=== PATIENT | female | born 1970 | race Caucasian/White ===

== ENCOUNTER → 2016-06-02 | Outpatient (CLI) | payer OTHER ==
--- NOTE | 2016-06-02 13:51 | MM ---
Reason for exam: clinical finding. Last mammogram was performed 8 months ago. Physical Findings: Nurse Summary: 2cm nodule in the left breast at 2 o'clock (nurse cosmo). MG 3D Diag Mammo W/Cad GREGORIO Bilateral CC and MLO view(s) were taken. Prior study comparison: October 03, 2015, bilateral MG screening mammo w CAD. April 05, 2010, bilateral diagnostic digital mammog. The breast tissue is extremely dense which could obscure a lesion on mammography. Finding: There are diffuse/scattered calcifications in both breasts without suspicious calcifications. There is a 2.9 x 1.8cm mass at site of clinical concern. These results were verbally communicated with the patient and result sheet given to the patient on 06/02/16. ASSESSMENT: Incomplete: need additional imaging evaluation, BI-RAD 0 RECOMMENDATION: Ultrasound of the left breast. (at palpable)
--- NOTE | 2016-06-02 13:52 | USB ---
Reason for exam: additional evaluation requested from abnormal screening. US Breast Limited LT Left breast ultrasound demonstrates numerous scattered cysts measuring 2.2cm at 1 o'clock, 1.3cm at 1 o'clock, 1.2cm at 2 o'clock, 1.7cm at 2 o'clock, 1.9cm at 3 o'clock and 2.4 x 1.4 x 2.0cm at BB at axilla. These results were verbally communicated with the patient and result sheet given to the patient on 06/02/16. ASSESSMENT: Benign, BI-RAD 2 RECOMMENDATION: Return to routine screening mammogram schedule for both breasts.
== END | disposition home or self-care (01) ==
LOC: RADMAMWWP 11:14
PROVIDERS: ATTEND Family Medicine
DX: N63 Unspecified lump in breast (principal)
CPT/HCPCS: 76642; G0204; G0279

== ENCOUNTER → 2017-08-14 | Outpatient (CLI) | payer OTHER ==
--- NOTE | 2017-08-14 12:46 | XR ---
EXAMINATION TYPE: XR chest 2V DATE OF EXAM: 08/14/2017 COMPARISON: NONE HISTORY: Cough. Posterior pain. TECHNIQUE: Frontal and lateral views of the chest are obtained. FINDINGS: There is no focal air space opacity, pleural effusion, or pneumothorax seen. The cardiac silhouette size is within normal limits. The osseous structures are intact. IMPRESSION: No acute cardiopulmonary process.
--- NOTE | 2017-08-14 12:48 | XR ---
EXAMINATION TYPE: XR thoracic spine complete DATE OF EXAM: 08/14/2017 CLINICAL HISTORY: Posterior back pain. TECHNIQUE: Frontal, lateral, and swimmer's view of thoracic spine are obtained. COMPARISON: None. FINDINGS: Thoracic spine show straightened alignment without evidence of acute fracture or dislocatio n. Vertebral body heights and disc space heights are preserved. Mild multilevel anterior spurring is seen. Visualized ribs and pedicles are unremarkable. IMPRESSION: Mild multilevel anterior spurring.
== END ==
LOC: RADXRMAIN 12:11
PROVIDERS: ATTEND Family Medicine
DX: M46.04 Spinal enthesopathy, thoracic region (principal)
CPT/HCPCS: 71046; 72072

== ENCOUNTER → 2017-09-25 | Outpatient (CLI) | payer OTHER ==
--- NOTE | 2017-09-28 10:22 | MM ---
Reason for exam: screening (asymptomatic). Last mammogram was performed 1 year and 4 months ago. Physical Findings: A clinical breast exam by your physician is recommended on an annual basis and results should be correlated with mammographic findings. MG Screening Mammo w CAD Bilateral CC and MLO view(s) were taken. Prior study comparison: June 02, 2016, bilateral MG 3d diag mammo w/cad GREGORIO. October 03, 2015, bilateral MG screening mammo w CAD. The breast tissue is extremely dense which could obscure a lesion on mammography. There are benign appearing round, oval, circumscribed, multiple bilateral masses waxing and waning over priors most characteristic of cysts. Benign appearing diffuse bilateral calcifications. No suspicious abnormality. ASSESSMENT: Benign, BI-RAD 2 RECOMMENDATION: Routine screening mammogram of both breasts in 1 year.
== END ==
LOC: RADMAMWWP 08:51
PROVIDERS: ATTEND Family Medicine
DX: Z12.31 Encounter for screening mammogram for malignant neoplasm of breast (principal)
CPT/HCPCS: 77067

== ENCOUNTER → 2018-12-13 | Outpatient (CLI) | payer OTHER ==
--- NOTE | 2018-12-14 11:18 | MM ---
Reason for exam: screening (asymptomatic). Last mammogram was performed 1 year and 3 months ago. Physical Findings: A clinical breast exam by your physician is recommended on an annual basis and results should be correlated with mammographic findings. MG 3D Screening Mammo W/Cad Bilateral CC and MLO view(s) were taken. Prior study comparison: September 25, 2017, bilateral MG screening mammo w CAD. June 02, 2016, bilateral MG 3d diag mammo w/cad GREGORIO. The breast tissue is extremely dense which could obscure a lesion on mammography. Finding: There are multiple round, diffuse/scattered calcifications in both breasts. There is a chronic nodularity bilaterally. Increase in size since September 25, 2017 and June 02, 2016. ASSESSMENT: Incomplete: need additional imaging evaluation, BI-RAD 0 RECOMMENDATION: Ultrasound of both breasts. [facility] will attempt to contact patient to return for ultrasound.
== END | disposition home or self-care (01) ==
LOC: RADMAMWWP 14:06
PROVIDERS: ATTEND Family Medicine
DX: Z12.31 Encounter for screening mammogram for malignant neoplasm of breast (principal)
CPT/HCPCS: 77063; 77067

== ENCOUNTER → 2018-12-17 | Outpatient (CLI) | payer OTHER ==
--- NOTE | 2018-12-17 10:52 | USB ---
Reason for exam: additional evaluation requested from abnormal screening. Physical Findings: Nurse did not find any significant physical abnormalities on exam. US Breast Workup GREGORIO Right complete breast ultrasound includes all four quadrants, the retroareolar region and axilla. Finding demonstrates a 4.9 x 2.6 x 3.8cm cystic lesion at 12 o'clock BB, a 1.0 x 0.6 x 0.9cm oval, mixed lesion at 7 o'clock BB, debris filled, short term follow up recommended, a 4.8 x 1.9 x 3.8cm cystic cluster at 8 o'clock and a 3.5 x 1.3 x 2.9cm cystic cluster at 9 o'clock. Left complete breast ultrasound includes all four quadrants, the retroareolar region and axilla. Finding demonstrates a 5.1 x 2.2 x 5.4cm cystic cluster at 12 o'clock BB, a 6.2 x 1.7 x 5.1cm cystic cluster at 2 o'clock and a 1.3 x 1.1 x 3.7cm cystic cluster at 10 o'clock BB. Innumerable cystic areas bilaterally. These results were verbally communicated with the patient and result sheet given to the patient on 12/17/18. ASSESSMENT: Probably benign, BI-RAD 3 RECOMMENDATION: Ultrasound of the right breast in 6 months.
== END | disposition home or self-care (01) ==
LOC: RADUSWWP 09:11
PROVIDERS: ATTEND Family Medicine
DX: R92.8 Other abnormal and inconclusive findings on diagnostic imaging of breast (principal)

== ENCOUNTER → 2019-07-15 | Outpatient (CLI) | payer BC ==
--- NOTE | 2019-07-15 11:09 | USB ---
Reason for exam: additional evaluation requested from prior study. Physical Findings: Nurse Summary: multiple bilatral cystic lumps (nurse mj). US Breast Limited RT Technologist: Asya Christianson Right limited breast ultrasound including focal area of concern, retroareolar and axilla demonstrates a 1.6 x 1.6 x 1.6cm cystic cluster at 9 o'clock, duct ectasia at the posterior nipple and a 1.1 x 0.8 x 5.3cm oval, cystic lesion with debris at 7 o'clock prior 1.0 x 0.6 x 0.9cm on 12/17/18. These results were verbally communicated with the patient and result sheet given to the patient on 07/15/19. ASSESSMENT: Probably benign, BI-RAD 3 RECOMMENDATION: Follow-up diagnostic mammogram of both breasts in 6 months. Ultrasound of the right breast in 6 months. (7 o'clock)
== END | disposition home or self-care (01) ==
LOC: RADUSWWP 09:43
PROVIDERS: ATTEND Family Medicine
DX: R92.8 Other abnormal and inconclusive findings on diagnostic imaging of breast (principal)

== ENCOUNTER → 2020-01-13 | Outpatient (CLI) | payer BC ==
--- NOTE | 2020-01-16 08:37 | MM ---
Reason for exam: additional evaluation requested from prior study. Last mammogram was performed 1 year and 1 month ago. History: Family history of breast cancer in maternal aunt at age 71 and breast cancer in maternal cousin. Benign cyst aspiration of the left breast, 2014. Physical Findings: Nurse Summary: 2cm nodule in the right breast at 9 o'clock, 3cm nodule in the right breast at 12 o'clock, 2cm nodule in the left breast at 11 o'clock, 3cm nodule in the left breast at 1 o'clock and a 2cm nodule in the left breast at 3 o'clock (nurse mj). MG 3D Diag Mammo W/Cad GREGORIO Bilateral CC, MLO, and XCCL view(s) were taken. Prior study comparison: December 13, 2018, bilateral MG 3d screening mammo w/cad. September 25, 2017, bilateral MG screening mammo w CAD. Finding: There are typically benign fine, diffuse/scattered calcifications in both breasts. Large dense oval and round densities at BB. These results were verbally communicated with the patient and result sheet given to the patient on 01/13/20. ASSESSMENT: Incomplete: need additional imaging evaluation, BI-RAD 0 RECOMMENDATION: Ultrasound of both breasts.
--- NOTE | 2020-01-16 08:39 | USB ---
Reason for exam: additional evaluation requested from abnormal screening. History: Family history of breast cancer in maternal aunt at age 71 and breast cancer in maternal cousin. Benign cyst aspiration of the left breast, 2014. US Breast Limited BILAT Right limited breast ultrasound including focal area of concern, retroareolar and axilla demonstrates a 4.4 x 1.1 x 4.0cm cystic lesion at 10 o'clock BB and a 5 x 3.6 x 4.9cm cystic lesion at 12 o'clock BB. Left limited breast ultrasound including focal area of concern, retroareolar and axilla demonstrates a 5.2 x 1.3 x 5.8cm cystic lesion at 10-12 o'clock BB and a 3.2 x 1.6 x 2.8cm cystic lesion at 1 o'clock BB. These results were verbally communicated with the patient and result sheet given to the patient on 01/13/20. ASSESSMENT: Benign, BI-RAD 2 RECOMMENDATION: Routine screening mammogram of both breasts in 1 year. Manage patient on a clinical basis.
== END | disposition home or self-care (01) ==
LOC: RADMAMWWP 13:52
PROVIDERS: ATTEND Family Medicine
DX: R92.8 Other abnormal and inconclusive findings on diagnostic imaging of breast (principal)
CPT/HCPCS: 77062; 77066

== ENCOUNTER 2020-07-11 09:07 | Day surgery (SDC) | payer BC ==
[2020-07-06 15:30] VITALS: BMI 29.0
--- NOTE | 2020-07-11 07:14 | P.GSHP ---
History of Present Illness H&P Date: 07/11/20 CHIEF COMPLAINT: Colon screen HISTORY OF PRESENT ILLNESS: The patient is a 50-year-old female who presents for colon screen. Lower endoscopy was offered for further evaluation and management. PAST MEDICAL HISTORY: Please see list. PAST SURGICAL HISTORY: Please see list. MEDICATIONS: Please see list. ALLERGIES: Please see list. SOCIAL HISTORY: No illicit drug use FAMILY HISTORY: No reports of Crohn disease or ulcerative colitis. REVIEW OF ORGAN SYSTEMS: CONSTITUTIONAL: No reports of fevers or chills. PHYSICAL EXAM: VITAL SIGNS: Stable GENERAL: Well-developed pleasant in no acute distress. HEENT: No scleral icterus. Extraocular movements grossly intact. Moist buccal mucosa. NECK: Supple without lymphadenopathy. CHEST: Unlabored respirations. Equal bilateral excursions. CARDIOVASCULAR: Regular rate and rhythm. Distal 2+ pulses. ABDOMEN: Soft, nontender, nondistended. MUSCULOSKELETAL: No clubbing, cyanosis, or edema. ASSESSMENT: 1. Colon screen. PLAN: 1. Recommend proceeding with a lower endoscopy Past Medical History Past Medical History: Thyroid Disorder Additional Past Medical History / Comment(s): HX POTS SYNDROME, HYPOTHYROID, PT HAD BOIL OR CYST ON HER BACK DRAINED BY DR SANTANA ON 07/04/20-PT STATES IT IS HEALING-NO DRAINAGE. History of Any Multi-Drug Resistant Organisms: None Reported Past Surgical History: Section Past Anesthesia/Blood Transfusion Reactions: No Reported Reaction, Motion Sickness Past Psychological History: Anxiety, Depression Additional Psychological History / Comment(s): YEARS AGO Smoking Status: Former smoker Past Alcohol Use History: Occasional Additional Past Alcohol Use History / Comment(s): SMOKED 3-4 YEARS IN COLLEGE. Past Drug Use History: None Reported - Past Family History Mother Family Medical History: No Reported History Medications and Allergies Home Medications Medication Instructions Recorded Confirmed Type Ascorbic Acid [Vitamin C] 250 mg PO DAILY 07/06/20 07/06/20 History Cholecalciferol [Vitamin D3 (25 25 mcg PO DAILY 07/06/20 07/06/20 History Mcg = 1000 Iu)] Elderberry 1 tab PO DAILY 07/06/20 History Krill/[place]-3/Dha/Epa/Lipids 1 each PO DAILY 07/06/20 07/06/20 History [Krill Oil 350 mg Softgel] L.acidoph,Paracasei, B.lactis 1 each PO DAILY 07/06/20 07/06/20 History [Probiotic] Levothyroxine Sodium [Synthroid] 175 mcg PO DAILY 07/06/20 07/06/20 History Multivit with Calcium,Iron,Min 1 each PO DAILY 07/06/20 07/06/20 History [Women's Multivitamin] Zinc With Quercetin 1 tab PO DAILY 07/06/20 History Allergies Allergy/AdvReac Type Severity Reaction Status Date / Time No Known Allergies Allergy Verified 07/06/20 14:56
[~2020-07-11 09:07] MED LIST: LACTATED RINGERS 1,000 ML IV SCH; LIDOCAINE 1% (10MG/ML) FOR IV START INTRADERMA PRN
[2020-07-11 09:37] VITALS: TEMP 98.6
[2020-07-11] MEDS ORDERED: LACTATED RINGERS 1,000 ML IV ONE ×2 (10:15)
[2020-07-11] MEDS ORDERED: PROPOFOL 10 MG/ML 20 ML VIAL IV ONE (10:17)
[2020-07-11 10:52] VITALS: RESP 16
--- NOTE | 2020-07-11 10:52 | P.PCN ---
Date of Procedure: 07/11/20 Description of Procedure: PREOPERATIVE DIAGNOSIS: Colonoscopy screening, first POSTOPERATIVE DIAGNOSIS: Colonoscopy screening, first OPERATION: Colonoscopy to the ascending colon SURGEON: Arianne Farley MD. ANESTHESIA: MAC. INDICATIONS: The patient is a 50-year-old female who presents for her first colonoscopy screening. Benefits and risks were described and informed consent was obtained. DESCRIPTION OF PROCEDURE: The patient had undergone Sutab prep. The patient had been brought into the o perating room and laid in the left lateral decubitus position. After adequate intravenous sedation, the rectum was examined with 2% lidocaine jelly. No external hemorrhoids were encountered. The rectal tone was within normal limits. No lesions were palpated in the rectal vault. An Olympus colonoscope was advanced requiring abdominal wall pressure. The scope was advanced to the ascending colon limited by her highly redundant hepatic flexure and sigmoid colon. The prep was excellent. No scattered diverticulosis was encountered. No colonic polyps were found. No evidence of focal colitis was found. Retroflexion of the scope demonstrated grade 1 internal hemorrhoids without active bleeding or inflammation. The colon was desufflated. The patient had tolerated the procedure well. Withdrawal time was over 6 minutes. FINDINGS: Aronchick preparation quality scale 1 (1-5) Internal hemorrhoids, grade 1 No external prolapsed hemorrhoids. No arteriovenous malformations. No adenomatous polyps. No focal colitis. RECOMMENDATIONS: Lower endoscopy in 5 years, 2025. Recommend completion barium enema. Plan - Discharge Summary New Discharge Prescriptions: Continue Levothyroxine Sodium [Synthroid] 175 mcg PO DAILY Cholecalciferol [Vitamin D3 (25 Mcg = 1000 Iu)] 25 mcg PO DAILY Zinc With Quercetin 1 tab PO DAILY Multivit with Calcium,Iron,Min [Women's Multivitamin] 1 each PO DAILY L.acidoph,Paracasei, B.lactis [Probiotic] 1 each PO DAILY Krill/[place]-3/Dha/Epa/Lipids [Krill Oil 350 mg Softgel] 1 each PO DAILY Elderberry 1 tab PO DAILY Ascorbic Acid [Vitamin C] 250 mg PO DAILY Discharge Medication List Ascorbic Acid [Vitamin C] 250 mg PO DAILY 07/06/20 [History] Cholecalciferol [Vitamin D3 (25 Mcg = 1000 Iu)] 25 mcg PO DAILY 07/06/20 [History] Elderberry 1 tab PO DAILY 07/06/20 [History] Krill/[place]-3/Dha/Epa/Lipids [Krill Oil 350 mg Softgel] 1 each PO DAILY 07/06/20 [History] L.acidoph,Paracasei, B.lactis [Probiotic] 1 each PO DAILY 07/06/20 [History] Levothyroxine Sodium [Synthroid] 175 mcg PO DAILY 07/06/20 [History] Multivit with Calcium,Iron,Min [Women's Multivitamin] 1 each PO DAILY 07/06/20 [History] Zinc With Quercetin 1 tab PO DAILY 07/06/20 [History] Follow up Appointment(s)/Referral(s): Arianne Farley MD [STAFF PHYSICIAN] - As Needed Patient Instructions/Handouts: *Surgery [facility] - (Anesthesia) Endoscopy Discharge Instructions, Colonoscopy (DC) Activity/Diet/Wound Care/Special Instructions: Repeat colonoscopy in 5 years, 2025 Discharge Disposition: HOME SELF-CARE
[2020-07-11 10:59] VITALS: BP 125/85; PULSE 87
== END 2020-07-11 11:40 | disposition home or self-care (01) ==
LOC: ORWHC2ENDO 09:07
PROVIDERS: ATTEND Surgery Plastic and Reconstructive Surgery
DX: Z12.11 Encounter for screening for malignant neoplasm of colon (principal); K64.0 First degree hemorrhoids; E03.9 Hypothyroidism, unspecified; I49.8 Other specified cardiac arrhythmias; F41.9 Anxiety disorder, unspecified; F32.9 Major depressive disorder, single episode, unspecified; Z87.891 Personal history of nicotine dependence; Z79.890 Hormone replacement therapy; Z98.890 Other specified postprocedural states; Z98.891 History of uterine scar from previous surgery
CPT/HCPCS: 81025; J2704; G0121

== ENCOUNTER → 2020-09-12 | Outpatient (CLI) | payer BC ==
--- NOTE | 2020-09-12 17:32 | FL ---
EXAMINATION TYPE: FL barium enema w air contrast DATE OF EXAM: 09/12/2020 COMPARISON: NONE HISTORY: 50-year-old female R6 8.89, abdominal physical exam. Incomplete colonoscopy 2 months ago due to redundancy. TECHNIQUE: A double contrast barium enema study is performed. Total fluoroscopy time: 4 minutes 31 seconds. Total images: 62. FINDINGS: Harness Inspector view of the abdomen shows overall non-obstructive bowel gas pattern. There is prominent redundancy of the descending colon with an extra U shaped loop that occurs just af ter the splenic flexure of the colon. There is overlap causes some examination dictation. Allowing for this limitation, no evidence of any mass or polyp, obstructing or constricting lesion th roughout the colon. No significant diverticular disease is noted. Appendix was filled and appeared normal. No reflux into the terminal ileum. IMPRESSION: Marked redundancy of the descending colon with an extra U-shaped loop that occurs just after the sple nanci flexure of the colon. Allowing for limitations from prominent bowel overlap here, no discrete abn ormality is seen.
== END | disposition home or self-care (01) ==
LOC: RADFLMAIN 09:17
PROVIDERS: ATTEND Surgery Plastic and Reconstructive Surgery
DX: Q43.8 Other specified congenital malformations of intestine (principal)
CPT/HCPCS: 74280

== ENCOUNTER → 2021-03-05 | Outpatient (CLI) | payer BC ==
--- NOTE | 2021-03-06 12:45 | MM ---
Reason for exam: screening (asymptomatic). Last mammogram was performed 1 year and 2 months ago. History: Family history of breast cancer in maternal aunt at age 71 and breast cancer in maternal cousin at age 40. Benign cyst aspiration of the left breast, 2015. Physical Findings: A clinical breast exam by your physician is recommended on an annual basis and results should be correlated with mammographic findings. MG 3D Screening Mammo W/Cad Bilateral CC and MLO view(s) were taken. Prior study comparison: January 13, 2020, bilateral MG 3d diag mammo w/cad GREGORIO. December 13, 2018, bilateral MG 3d screening mammo w/cad. September 25, 2017, bilateral MG screening mammo w CAD. The breast tissue is heterogeneously dense. This may lower the sensitivity of mammography. Finding: Architectural distortion located 4 cm from the nipple in the right breast, medial on CC zone A/B. New finding since January 13, 2020, December 13, 2018, and September 25, 2017. ASSESSMENT: Incomplete: need additional imaging evaluation, BI-RAD 0 RECOMMENDATION: Ultrasound of the right breast. [facility] will attempt to contact patient to return for ultrasound.
== END | disposition home or self-care (01) ==
LOC: RADMAMWWP 12:02
PROVIDERS: ATTEND Family Medicine
DX: Z12.31 Encounter for screening mammogram for malignant neoplasm of breast (principal); Z80.3 Family history of malignant neoplasm of breast
CPT/HCPCS: 77063; 77067

== ENCOUNTER → 2021-03-18 | Outpatient (CLI) | payer BC ==
--- NOTE | 2021-03-19 12:11 | USB ---
Reason for exam: additional evaluation requested from abnormal screening. History: Family history of breast cancer in maternal aunt at age 71 and breast cancer in maternal cousin at age 40. Benign cyst aspiration of the left breast, 2014. Physical Findings: Nurse Summary: right breast 12 o'clock, mobile 1cm round (nurse steven). US Breast Workup Limited RT Right limited breast ultrasound including focal area of concern, retroareolar and axilla demonstrates a 2.1 x 2.3 x 1.2cm oval, cystic lesion at 12 o'clock, a 1.2 x 1.4 x 1.0cm oval, cystic lesion at 2 o'clock, a 0.5 x 0.6 x 0.5cm cystic, calcification at 6 o'clock no solid mass is identified and a 2.3 x 1.2 x 1.5cm oval, cystic lesion at the posterior nipple. These results were verbally communicated with the patient and result sheet given to the patient on 03/18/21. ASSESSMENT: Incomplete: need additional imaging evaluation, BI-RAD 0 RECOMMENDATION: Special view mammogram of the right breast. (spot 3D CC)
--- NOTE | 2021-03-19 12:12 | MM ---
Reason for exam: additional evaluation requested from abnormal screening. Last mammogram was performed less than 1 month ago. History: Family history of breast cancer in maternal aunt at age 71 and breast cancer in maternal cousin at age 40. Benign cyst aspiration of the left breast, 2015. MG 3D Work Up W/Cad RT Spot compression CC view(s) were taken of the right breast. Prior study comparison: January 13, 2020, bilateral MG 3d diag mammo w/cad GREGORIO. December 13, 2018, bilateral MG 3d screening mammo w/cad. The breast tissue is extremely dense which could obscure a lesion on mammography. Spot 3D shows no persisting architectural distortion. Diagnostic follow up recommended. These results were verbally communicated with the patient and result sheet given to the patient on 03/18/21. ASSESSMENT: Probably benign, BI-RAD 3 RECOMMENDATION: Follow-up diagnostic mammogram of both breasts in 1 year.
== END | disposition home or self-care (01) ==
LOC: RADUSWWP 10:32
PROVIDERS: ATTEND Family Medicine
DX: N60.01 Solitary cyst of right breast (principal); R92.1 Mammographic calcification found on diagnostic imaging of breast; Z80.3 Family history of malignant neoplasm of breast
CPT/HCPCS: 77061; 77065

== ENCOUNTER → 2021-06-19 | Outpatient (CLI) | payer BC ==
--- NOTE | 2021-06-19 12:11 | US ---
EXAMINATION TYPE: US venous doppler duplex LE DATE OF EXAM: 06/19/2021 12:05 PM COMPARISON: NONE CLINICAL HISTORY: R60.0 Edema. Edema. Pt had laser ablation procedure on right leg April 13. No hx of DVT. Not taking thinners. SIDE PERFORMED: Right TECHNIQUE: The lower extremity deep venous system is examined utilizing real time linear array sonog romero with graded compression, doppler sonography and color-flow sonography. VESSELS IMAGED: Common Femoral Vein Deep Femoral Vein Greater Saphenous Vein * Femoral Vein Popliteal Vein Small Saphenous Vein * Proximal Calf Veins (* superficial vessels) Right Leg: Internal echoes seen within GSV at the area of patient's concern . No color flow seen wit hin superficial vein at right medial upper thigh. Pt had laser ablation 04/13/2022. Left Leg: No evidence of DVT in veins imaged at this time. Office notified of the findings at the time of imaging. IMPRESSION: 1. No deep venous thrombosis bilateral lower extremities. 2. Appears to be thrombosis through the greater saphenous vein corresponding to the patient's area of concern.
--- NOTE | 2021-06-19 16:25 | XR ---
EXAMINATION TYPE: XR chest 2V DATE OF EXAM: 06/19/2021 COMPARISON: 08/14/2017 INDICATION: Dorsalgia TECHNIQUE: Frontal and lateral views of the chest are obtained. FINDINGS: The heart size is normal. The pulmonary vasculature is normal. The lungs are clear. Osseous structures appear normal. Thoracic spine appears unremarkable. Vertebra l body heights and disc heights as visualized appear normal. IMPRESSION: 1. No acute pulmonary process.
== END | disposition home or self-care (01) ==
LOC: RADUSWWP 11:21
PROVIDERS: ATTEND Family Medicine
DX: R60.0 Localized edema (principal); M54.9 Dorsalgia, unspecified
CPT/HCPCS: 71046; 93970

== ENCOUNTER → 2022-05-12 | Outpatient (CLI) | payer BC | END | disposition home or self-care (01) | LOC: RADMAMWWP 08:44 | PROVIDERS: ATTEND Obstetrics & Gynecology | DX: Z53.9 Procedure and treatment not carried out, unspecified reason (principal) ==

== ENCOUNTER → 2022-05-29 | Outpatient (CLI) | payer BC ==
--- NOTE | 2022-05-29 13:29 | MM ---
Reason for Exam: Follow-up at short interval from prior study. Last mammogram was performed 1 year(s) and 3 month(s) ago. Patient History: Menarche at age 14. First Full-Term at age 27. Perimenopausal. 2014, Benign Cyst Aspiration on the left side. Maternal cousin had breast cancer, age 40. Maternal aunt had breast cancer, age 71. Risk Values: Genesis 5 year model risk: 1.1%. NCI Lifetime model risk: 8.8%. Prior Study Comparison: 09/25/2017 Bilateral Screening Mammogram, [facility]. 12/13/2018 Bilateral Screening Mammogram, [facility]. 12/17/2018 Bilateral Diagnostic Ultrasound, [facility]. 07/15/2019 Right Diagnostic Ultrasound, [facility]. 01/13/2020 Bilateral Diagnostic Mammogram, [facility]. 01/13/2020 Bilateral Diagnostic Ultrasound, [facility]. 03/05/2021 Bilateral Screening Mammogram, [facility]. 03/18/2021 Right Diagnostic Ultrasound, [facility]. 03/18/2021 Right Diagnostic Mammogram, [facility]. Tissue Density: The breast tissue is extremely dense which could obscure a lesion on mammography. Findings: Analyzed By CAD. The breasts are extremely dense and there are innumerable (greater than 200) calcifications in both breasts which a majority are punctate. Direct comparison with priors given differences in technique is difficult. Overall Assessment: Benign, BI-RAD 2 Management: Diagnostic Breast MRI of both breasts. Given patient's extremely dense breast and greater than 200 calcifications in the bilateral breast, this patient should consider screening and workup with MRI in the future. A clinical breast exam by your physician is recommended on an annual basis and results should be correlated with mammographic findings. This exam should not preclude additional follow-up of suspicious palpable abnormalities. Results were given to the patient verbally at the time of exam. Electronically signed and approved by: Good Cohen DO
== END | disposition home or self-care (01) ==
LOC: RADMAMWWP 12:54
PROVIDERS: ATTEND Obstetrics & Gynecology
DX: R92.8 Other abnormal and inconclusive findings on diagnostic imaging of breast (principal); Z80.3 Family history of malignant neoplasm of breast
CPT/HCPCS: 77062; 77066

== ENCOUNTER → 2022-07-31 | Outpatient (CLI) | payer BC ==
[2022-07-31 13:32] VITALS: BP 133/85; PULSE 85; RESP 18; TEMP 98.2
--- NOTE | 2022-07-31 13:45 | P.GSHP ---
History of Present Illness H&P Date: 07/31/22 Oliva is a 52 year old white female seen in consultation for Dr. Romario Galvez regarding an abnormal mammogram. She underwent a bilateral mammogram on . This revealed dense breast tissue with innumerable calcifications in both breasts. The patient does not feel any new discrete lumps masses or nodules of concern in either breast. She is not complaining of any nipple discharge or skin changes. She has not had any recent trauma or infection in the breast. She's never had any breast surgery. She has had cyst aspirated in the past. She still has regular menstrual periods. Her breast become more full and tender prior to her menstrual periods. Caffiene: 2 cups coffee/day nicotine: stopped at 25 used to smoke 1 pk every 2 days chocolate: daily BCP: 6 years stopped at 27 Family History; mother: non-hodgkins lymphoma 2020 maternal aunt: breast cancer at 65 cousin maternal: breast cancer at 40 Hormonal History: menarche: 15 breat fed: yes, age at first : 27 periods still regular Surgical History: 1 right varicose vein stripping Medical History: hypothyroid low back pain; L5S1 herniated disc anxiety/depression in the past not now Social History: nicotine: as above alcohol: weekly drugs: none - Constitutional Constitutional: Denies chills, Denies fever - EENT Eyes: denies blurred vision, denies pain Ears: deny: decreased hearing, tinnitus Ears, nose, mouth and throat: Reports headache, Denies sore throat - Breasts Breasts: bilateral: as per HPI - Cardiovascular Cardiovascular: Denies chest pain, Denies shortness of breath - Respiratory Respiratory: Denies cough, Denies 7 - Gastrointestinal Gastrointestinal: Reports constipation, Denies abdominal pain, Denies diarrhea, Denies nausea, Denies vomiting - Genitourinary (Female) Genitourinary: Denies dysuria, Denies hematuria - Menstruation Menstruation: Reports period normal - Musculoskeletal Musculoskeletal: Reports as per HPI - Integumentary Integumentary: Denies pruritus, Denies rash - Neurological Neurological: Denies numbness, Denies weakness - Psychiatric Psychiatric: Denies anxiety, Denies depression - Endocrine Endocrine: Denies fatigue, Denies weight change - Hematologic/Lymphatic Comment: none - Allergic/Immunologic Allergic/Immunologic: Reports as per HPI Past Medical History Past Medical History: Thyroid Disorder Additional Past Medical History / Comment(s): HX POTS SYNDROME, HYPOTHYROID, PT HAD BOIL OR CYST ON HER BACK DRAINED BY DR GALVEZ ON 07/04/20-PT STATES IT IS HEALING-NO DRAINAGE. History of Any Multi-Drug Resistant Organisms: None Reported Past Surgical History: Section Past Anesthesia/Blood Transfusion Reactions: No Reported Reaction, Motion Sickness Past Psychological History: Anxiety, Depression Smoking Status: Former smoker Past Alcohol Use History: Occasional Past Drug Use History: None Reported - Past Family History Mother Family Medical History: No Reported History Medications and Allergies Home Medications Medication Instructions Recorded Confirmed Type Ascorbic Acid [Vitamin C] 250 mg PO DAILY 07/06/20 07/31/22 History Cholecalciferol [Vitamin D3 (25 25 mcg PO DAILY 07/06/20 07/31/22 History Mcg = 1000 Iu)] Krill/[place]-3/Dha/Epa/Lipids 1 each PO DAILY 07/06/20 07/31/22 History [Krill Oil 350 mg Softgel] L.acidoph,Paracasei, B.lactis 1 each PO DAILY 07/06/20 07/31/22 History [Probiotic] Levothyroxine Sodium [Synthroid] 175 mcg PO DAILY 07/06/20 07/31/22 History Multivit with Calcium,Iron,Min 1 each PO DAILY 07/06/20 07/31/22 History [Women's Multivitamin] Zinc With Quercetin 1 tab PO DAILY 07/06/20 07/31/22 History Allergies Allergy/AdvReac Type Severity Reaction Status Date / Time No Known Allergies Allergy Verified 07/31/22 13:27 Surgical - Exam - General no distress - Eyes normal ocular movement - Neck trachea midline - Respiratory normal respiratory effort, clear to auscultation - Cardiovascular Rhythm: regular Heart Sounds: normal: S1, S2 - Abdomen Abdomen: soft, non tender, no guarding, no rigid, no rebound - Integumentary normal turgor - Neurologic no disoriented, no combative - Musculoskeletal normal gait - Psychiatric oriented to time, oriented to person, oriented to place, speech is normal, memory intact Breast Exam: BRA: 38C inspection: Bilateral grade 2/3 ptosis Palpation: Right breast: Multiple positional exam dense breast, fibrocystic changes, no discrete dominant masses or nodules of concern Right axilla: No adenopathy of concern Left breast: Multiple positional exam dense breasts, fibrocystic changes, no discrete dominant masses or nodules of concern Left axilla: No adenopathy of concern Results Mammogram personally reviewed Assessment and Plan Assessment: Impression: Bilateral dense breast with bilateral radiographic multiple microcalcifications Plan: Bilateral breast MRI recommended, if we are unable to do the breast MRI would recommend bilateral breast ultrasound Follow up after breast MRI Cc: Dr. Romario Galvez, Dr. Garcia
== END ==
LOC: WWCWWP 13:00
PROVIDERS: ATTEND Surgery
DX: R92.8 Other abnormal and inconclusive findings on diagnostic imaging of breast (principal); E03.9 Hypothyroidism, unspecified; Z80.3 Family history of malignant neoplasm of breast; Z87.891 Personal history of nicotine dependence; Z79.890 Hormone replacement therapy

== ENCOUNTER → 2022-09-08 | Outpatient (CLI) | payer BC ==
--- NOTE | 2022-09-08 11:55 | USB ---
Reason for Exam: Additional evaluation requested from prior study. Patient History: Menarche at age 14. First Full-Term at age 27. Perimenopausal. 2015, Benign Cyst Aspiration on the left side. Maternal cousin had breast cancer, age 40. Maternal aunt had breast cancer, age 71. Risk Values: Genesis 5 year model risk: 1.1%. NCI Lifetime model risk: 8.8%. Prior Study Comparison: 01/13/2020 Bilateral Diagnostic Ultrasound, [facility]. 03/05/2021 Bilateral Screening Mammogram, [facility]. 03/18/2021 Right Diagnostic Ultrasound, [facility]. 03/18/2021 Right Diagnostic Mammogram, [facility]. 05/29/2022 Bilateral MG 3D diag mammo w/cad GREGORIO, [facility]. Findings: The whole breast of both breasts, the axilla of both breasts and the retroareolar of both breasts were scanned. There are extensive bilateral simple and complex cysts in the bilateral breasts. Prominent ducts are present bilaterally. Layering debris was demonstrated during portions of the exam. No suspicious solid lesions are identified. No spiculated or shadowing masses are identified. Areas appear to have good through transmission. There is a suggestion of scattered punctate calcifications which would match the mammogram. Largest simple cyst within the right breast in the subareolar region measures 3.0 x 1.6 x 3.0 cm. Largest on the left measures 2.4 x 2.1 x 1.1 cm. Overall Assessment: Probably benign, BI-RAD 3 Management: Diagnostic Breast Ultrasound of both breasts in 6 months. A clinical breast exam by your physician is recommended on an annual basis and results should be correlated with mammographic findings. This exam should not preclude additional follow-up of suspicious palpable abnormalities. Results were given to the patient verbally at the time of exam. Electronically signed and approved by: Alen Chirinos D.O. Radiologis
== END | disposition home or self-care (01) ==
LOC: RADUSWWP 09:10
PROVIDERS: ATTEND Surgery
DX: N60.01 Solitary cyst of right breast (principal); N60.02 Solitary cyst of left breast; R92.8 Other abnormal and inconclusive findings on diagnostic imaging of breast; Z78.0 Asymptomatic menopausal state; Z80.3 Family history of malignant neoplasm of breast

== ENCOUNTER → 2022-09-19 | Outpatient (CLI) | payer BC ==
--- NOTE | 2022-09-19 09:25 | P.PN ---
Subjective Progress Note Date: 09/19/22 Oliva is a 52 year old white female seen in consultation for Dr. Romario Galvez regarding an abnormal mammogram. She underwent a bilateral mammogram on 2222. This revealed dense breast tissue with innumerable calcifications in both breasts. The patient does not feel any new discrete lumps masses or nodules of concern in either breast. She is not complaining of any nipple discharge or skin changes. She has not had any recent trauma or infection in the breast. She's never had any breast surgery. She has had cyst aspirated in the past. She still has regular menstrual periods. Her breast become more full and tender prior to her menstrual periods. She was seen for evaluation of this and 4622. Breast examination at that time did not reveal any discrete dominant masses or nodules of concern in either breast. She was recommended at that time secondary to her dense breast undergo bilateral breast MRI or if that will not possible bilateral breast ultrasound. Bilateral breast ultrasound was performed on . This revealed extensive bilateral simple and complex cysts in the breasts. Recommendation was for repeat diagnostic ultrasound of both breast in 6 months. I have personally reviewed the ultrasounds. She states her LMP was approximately 2 weeks ago. Her menstrual cycles are irregular at this time. Her breast become much more tender close to proximity of her periods. Caffiene: 2 cups coffee/day she is down to 1 cup now and she is decreasing the amount nicotine: stopped at 25 used to smoke 1 pk every 2 days chocolate: daily in the past has decreased BCP: 6 years stopped at 27 Family History; mother: non-hodgkins lymphoma 2020 maternal aunt: breast cancer at 65 cousin maternal: breast cancer at 40 Hormonal History: menarche: 15 breast fed: yes, age at first : 27 periods still regular Surgical History: 1 right varicose vein stripping Medical History: hypothyroid low back pain; L5S1 herniated disc anxiety/depression in the past not now Social History: nicotine: as above alcohol: weekly drugs: none - Constitutional Constitutional: Denies chills, Denies fever - EENT Eyes: denies blurred vision, denies pain Ears: deny: decreased hearing, tinnitus Ears, nose, mouth and throat: Reports headache, Denies sore throat - Breasts Breasts: bilateral: as per HPI - Cardiovascular Cardiovascular: Denies chest pain, Denies shortness of breath - Respiratory Respiratory: Denies cough - Gastrointestinal Gastrointestinal: Reports constipation, Denies abdominal pain, Denies diarrhea, Denies nausea, Denies vomiting - Genitourinary (Female) Genitourinary: Denies dysuria, Denies hematuria - Menstruation Menstruation: Reports period normal - Musculoskeletal Musculoskeletal: Reports as per HPI - Integumentary Integumentary: Denies pruritus, Denies rash - Neurological Neurological: Denies numbness, Denies weakness - Psychiatric Psychiatric: Denies anxiety, Denies depression - Endocrine Endocrine: Denies fatigue, Denies weight change - Hematologic/Lymphatic Comment: none - Allergic/Immunologic Allergic/Immunologic: Reports as per HPI Past Medical History Past Medical History: Thyroid Disorder Additional Past Medical History / Comment(s): HX POTS SYNDROME, HYPOTHYROID, PT HAD BOIL OR CYST ON HER BACK DRAINED BY DR GALVEZ ON 07/04/20-PT STATES IT IS HEALING-NO DRAINAGE. History of Any Multi-Drug Resistant Organisms: None Reported Past Surgical History: Section Past Anesthesia/Blood Transfusion Reactions: No Reported Reaction, Motion Sickn ess Past Psychological History: Anxiety, Depression Smoking Status: Former smoker Past Alcohol Use History: Occasional Past Drug Use History: None Reported - Past Family History Mother Family Medical History: No Reported History Medications and Allergies Home Medications Medication Instructions Recorded Confirmed Type Ascorbic Acid [Vitamin C] 250 mg PO DAILY 07/06/20 07/31/22 History Cholecalciferol [Vitamin D3 (25 25 mcg PO DAILY 07/06/20 07/31/22 History Mcg = 1000 Iu)] Krill/[place]-3/Dha/Epa/Lipids 1 each PO DAILY 07/06/20 07/31/22 History [Krill Oil 350 mg Softgel] L.acidoph,Paracasei, B.lactis 1 each PO DAILY 07/06/20 07/31/22 History [Probiotic] Levothyroxine Sodium [Synthroid] 175 mcg PO DAILY 07/06/20 07/31/22 History Multivit with Calcium,Iron,Min 1 each PO DAILY 07/06/20 07/31/22 History [Women's Multivitamin] Zinc With Quercetin 1 tab PO DAILY 07/06/20 07/31/22 History Allergies Allergy/AdvReac Type Severity Reaction Status Date / Time No Known Allergies Allergy Verified 07/31/22 13:27 Objective - Constitutional General appearance: Present: cooperative - EENT Eyes: Present: EOMI ENT: Present: hearing grossly normal - Neck Neck: Present: normal ROM - Integumentary Integumentary: Present: normal turgor - Musculoskeletal Musculoskeletal: Present: gait normal - Psychiatric Psychiatric: Present: A&O x's 3, appropriate affect, intact judgment & insight - Additional findings Additional findings: Breast Exam: BRA: 38C Inspection: Bilateral grade 2/3 ptosis Palpation: Right breast: Multiple positional exam fibrocystic changes without appears to be cystic changes at the 12:00 9 and 9:30 position Right axilla: No adenopathy of concern Left breast: Multi-positional exam fibrocystic changes, but appears to be cystic lesion at the 12 o'clock position Left axilla: No adenopathy of concern Assessment and Plan Assessment: Impression: Fibrocystic breast changes Ultrasound revealing multiple system both breasts Plan: Aspiration of palpable cystic changes Patient was given the option of seeing a radiologist in having this done by ultrasound guidance and at this time she would like us to just attempt to aspirate Aspiration of cysts The right breast was approached initially. 9 o'clock position was prepped using alcohol 22 age needle on a 10 mL syringe was inserted into the palpable abnormality 4 mL of fluid was removed 9:30 position alcohol used to prep the skin 2 mL of fluid removed 10 o'clock position no fluid was removed this appears to be a more solid lesion 12 o'clock position alcohol used to prep the skin 2 mL of fluid removed In the left breast 12 o'clock position the breast was prepped using alcohol and 22-gauge needle and 10 mL syringe 2 mL of fluid removed The patient is going to follow up in 6 weeks if these cysts seem to have recurred would recommend ultrasound-guided aspiration Repeat bilateral ultrasound in 6 months with physician exam at that time Life style modifications patient is stopping her caffeine intake, decreasing chocolate consumption. Patient's symptoms are worse just before her menstrual cycles it is felt that these are hormonally related as well. Cc: Dr. Romario Galvez
[2022-09-19 09:31] VITALS: BP 137/73; PULSE 82; RESP 16; TEMP 97.9
== END ==
LOC: WWCWWP 09:00
PROVIDERS: ATTEND Surgery
DX: N60.11 Diffuse cystic mastopathy of right breast (principal); E03.9 Hypothyroidism, unspecified; N60.12 Diffuse cystic mastopathy of left breast; R92.1 Mammographic calcification found on diagnostic imaging of breast; R92.2 Inconclusive mammogram; Z80.3 Family history of malignant neoplasm of breast; Z87.891 Personal history of nicotine dependence

== ENCOUNTER → 2022-11-07 | Outpatient (CLI) | payer BC ==
[2022-11-07 14:21] VITALS: BP 130/79; PULSE 93; RESP 13; TEMP 98.3
--- NOTE | 2022-11-07 14:52 | P.PN ---
Subjective Progress Note Date: 11/07/22 Oliva is a 52-year-old white female who was seen in consultation for Dr. Romario Galvez initially regarding an abnormal mammogram. She had undergone a bilateral mammogram on 2222. This revealed dense breast tissue with innumerable calcifications in both breasts. The patient has had multiple cyst aspirated in both breast in the past. On her most recent visit and attempt to aspirate for cyst was performed with minimal fluid being removed. She did have bilateral breast ultrasound performed on which revealed extensive bilateral simple and complex cysts. The recommendation was for repeat diagnostic ultrasound of both breasts in 6 months. At that time the following cysts were attempted to be aspirated. Aspiration of cysts The right breast was approached initially. 9 o'clock position was prepped using alcohol 22 age needle on a 10 mL syringe was inserted into the palpable abnormality 4 mL of fluid was removed 9:30 position alcohol used to prep the skin 2 mL of fluid removed 10 o'clock position no fluid was removed this appears to be a more solid lesion 12 o'clock position alcohol used to prep the skin 2 mL of fluid removed In the left breast 12 o'clock position the breast was prepped using alcohol and 22-gauge needle and 10 mL syringe 2 mL of fluid removed She has persistent left lateral breast nodularity and on the right side at approximately 12:00 in area of increased nodularity. Last menstrual period started 1 week ago. At this time she does not have any nodules which are bothering her which she wishes to have aspirated. The patient has decreased her caffeine and chocolate intake. Caffiene: 1 cup/day nicotine: stopped at 25 used to smoke 1 pk every 2 days chocolate: three times a week BCP: 6 years stopped at 27 Family History; mother: non-hodgkins lymphoma 2020 maternal aunt: breast cancer at 65 cousin maternal: breast cancer at 40 Hormonal History: menarche: 15 breast fed: yes, age at first : 27 periods still regular Surgical History: 1 right varicose vein stripping Medical History: hypothyroid low back pain; L5S1 herniated disc anxiety/depression in the past not now Social History: nicotine: as above alcohol: weekly drugs: none - Constitutional Constitutional: Denies chills, Denies fever - EENT Eyes: denies blurred vision, denies pain Ears: deny: decreased hearing, tinnitus Ears, nose, mouth and throat: Reports headache, Denies sore throat - Breasts Breasts: bilateral: as per HPI - Cardiovascular Cardiovascular: Denies chest pain, Denies shortness of breath - Respiratory Respiratory: Denies cough - Gastrointestinal Gastrointestinal: Reports constipation, Denies abdominal pain, Denies diarrhea, Denies nausea, Denies vomiting - Genitourinary (Female) Genitourinary: Denies dysuria, Denies hematuria - Menstruation Menstruation: Reports period normal - Musculoskeletal Musculoskeletal: Reports as per HPI - Integumentary Integumentary: Denies pruritus, Denies rash - Neurological Neurological: Denies numbness, Denies weakness - Psychiatric Psychiatric: Denies anxiety, Denies depression - Endocrine Endocrine: Denies fatigue, Denies weight change - Hematologic/Lymphatic Comment: none - Allergic/Immunologic Allergic/Immunologic: Reports as per HPI Past Medical History Past Medical History: Thyroid Disorder Additional Past Medical History / Comment(s): HX POTS SYNDROME, HYPOTHYROID, PT HAD BOIL OR CYST ON HER BACK DRAINED BY DR GALVEZ ON 07/04/20-PT STATES IT IS HEALING-NO DRAINAGE. History of Any Multi-Drug Resistant Organisms: None Reported Past Surgical History: Section Past Anesthesia/Blood Transfusion Reactions: No Reported Reaction, Motion Sickness Past Psychological History: Anxiety, Depression Smoking Status: Former smoker Past Alcohol Use History: Occasional Past Drug Use History: None Reported - Past Family History Mother Family Medical History: No Reported History Medications and Allergies Home Medications Medication Instructions Recorded Confirmed Type Ascorbic Acid [Vitamin C] 250 mg PO DAILY 07/06/20 07/31/22 History Cholecalciferol [Vitamin D3 (25 25 mcg PO DAILY 07/06/20 07/31/22 History Mcg = 1000 Iu)] Krill/[place]-3/Dha/Epa/Lipids 1 each PO DAILY 07/06/20 07/31/22 History [Krill Oil 350 mg Softgel] L.acidoph,Paracasei, B.lactis 1 each PO DAILY 07/06/20 07/31/22 History [Probiotic] Levothyroxine Sodium [Synthroid] 175 mcg PO DAILY 07/06/20 07/31/22 History Multivit with Calcium,Iron,Min 1 each PO DAILY 07/06/20 07/31/22 History [Women's Multivitamin] Zinc With Quercetin 1 tab PO DAILY 07/06/20 07/31/22 History Allergies Allergy/AdvReac Type Severity Reaction Status Date / Time No Known Allergies Allergy Verified 07/31/22 13:27 Objective - Vital Signs Vital signs: Vital Signs Temp 98.3 F 11/07/22 14:16 Pulse 93 11/07/22 14:16 Resp 13 11/07/22 14:16 BP 130/79 11/07/22 14:16 Pulse Ox 98 11/07/22 14:16 FiO2 Intake & Output 11/06/22 11/07/22 11/07/22 18:59 06:59 18:59 Weight 80.286 kg - Constitutional General appearance: Present: cooperative - EENT Eyes: Present: EOMI ENT: Present: hearing grossly normal - Neck Neck: Present: normal ROM - Respiratory Respiratory: bilateral: CTA - Cardiovascular Rhythm: regular Heart sounds: normal: S1, S2 - Gastrointestinal General gastrointestinal: Present: soft - Integumentary Integumentary: Present: normal turgor - Musculoskeletal Musculoskeletal: Present: gait normal - Psychiatric Psychiatric: Present: A&O x's 3, appropriate affect, intact judgment & insight - Additional findings Additional findings: Breast Exam: BRA: 38C Inspection: Bilateral grade 2/3 ptosis Palpation: Right breast: Multiple positional exam fibrocystic changes with dense breast tissue Right axilla: No adenopathy of concern Left breast: Multi-positional exam fibrocystic changes, dense breast tissue Left axilla: No adenopathy of concern Assessment and Plan Assessment: Impression: Fibrocystic breast changes Ultrasound 09-08-22 revealing multiple cysts both breasts Multiple attempts of cyst aspirations on last visit, nothing to aspirate today Plan: Bilateral breast ultrasound in February 2023 with examination at that time Continue lifestyle modifications The questions or concerns she will see us sooner. Cc: Dr. Romario Galvez
== END ==
LOC: WWCWWP 14:09
PROVIDERS: ATTEND Surgery
DX: R92.8 Other abnormal and inconclusive findings on diagnostic imaging of breast (principal); N60.11 Diffuse cystic mastopathy of right breast; N60.12 Diffuse cystic mastopathy of left breast; E03.9 Hypothyroidism, unspecified; F41.9 Anxiety disorder, unspecified; F32.A Depression, unspecified; Z87.891 Personal history of nicotine dependence; Z80.3 Family history of malignant neoplasm of breast; Z79.890 Hormone replacement therapy

== ENCOUNTER 2022-11-12 10:54 | Day surgery (SDC) | payer BC ==
[2022-11-11 08:29] VITALS: BMI 28.5
[~2022-11-12 10:54] MED LIST changes: +ONDANSETRON 4 MG/2 ML VIAL IVP PRN
[2022-11-12 12:00] VITALS: TEMP 98.4
--- NOTE | 2022-11-12 12:00 | P.GSHP ---
History of Present Illness H&P Date: 11/12/22 CHIEF COMPLAINT: Colon screen HISTORY OF PRESENT ILLNESS: The patient is a 52-year-old female who presents for colon screen. Lower endoscopy was offered for further evaluation and management. PAST MEDICAL HISTORY: Please see list. PAST SURGICAL HISTORY: Please see list. MEDICATIONS: Please see list. ALLERGIES: Please see list. SOCIAL HISTORY: No illicit drug use FAMILY HISTORY: No reports of Crohn disease or ulcerative colitis. REVIEW OF ORGAN SYSTEMS: CONSTITUTIONAL: No reports of fevers or chills. PHYSICAL EXAM: VITAL SIGNS: Stable GENERAL: Well-developed pleasant in no acute distress. HEENT: No scleral icterus. Extraocular movements grossly intact. Moist buccal mucosa. NECK: Supple without lymphadenopathy. CHEST: Unlabored respirations. Equal bilateral excursions. CARDIOVASCULAR: Regular rate and rhythm. Distal 2+ pulses. ABDOMEN: Soft, nontender, nondistended. MUSCULOSKELETAL: No clubbing, cyanosis, or edema. ASSESSMENT: 1. Colon screen. PLAN: 1. Recommend proceeding with a lower endoscopy Past Medical History Past Medical History: Thyroid Disorder Additional Past Medical History / Comment(s): HX POTS SYNDROME, HYPOTHYROID, PT HAD BOIL OR CYST ON HER BACK DRAINED BY DR SANTANA ON 07/04/20-PT STATES IT IS HEALING-NO DRAINAGE. History of Any Multi-Drug Resistant Organisms: None Reported Past Surgical History: Section Additional Past Surgical History / Comment(s): varicose vein right leg 2021 colonoscopy 2020 Past Anesthesia/Blood Transfusion Reactions: No Reported Reaction, Motion Sickness Additional Past Anesthesia/Blood Transfusion Reaction / Comment(s): No blood transfusion Smoking Status: Former smoker - Past Family History Mother Family Medical History: No Reported History Additional Family Medical History / Comment(s): non hodgkins lymphoma Medications and Allergies Home Medications Medication Instructions Recorded Confirmed Type Ascorbic Acid [Vitamin C] 250 mg PO DAILY 07/06/20 11/11/22 History Cholecalciferol [Vitamin D3 (25 25 mcg PO DAILY 07/06/20 11/11/22 History Mcg = 1000 Iu)] Krill/[place]-3/Dha/Epa/Lipids 1 each PO DAILY 07/06/20 11/11/22 History [Krill Oil 350 mg Softgel] L.acidoph,Paracasei, B.lactis 1 each PO DAILY 07/06/20 11/11/22 History [Probiotic] Levothyroxine Sodium [Synthroid] 175 mcg PO DAILY 07/06/20 11/11/22 History Multivit with Calcium,Iron,Min 1 each PO DAILY 07/06/20 11/11/22 History [Women's Multivitamin] Allergies Allergy/AdvReac Type Severity Reaction Status Date / Time No Known Allergies Allergy Verified 11/11/22 08:18 Surgical - Exam Vital Signs Temp Pulse Resp BP Pulse Ox 98.4 F 91 18 139/94 96 11/12/22 11:59 11/12/22 11:59 11/12/22 11:59 11/12/22 11:59 11/12/22 11:59
[2022-11-12] MEDS ORDERED: MIDAZOLAM 2 MG/2 ML VIAL ONE (12:12)
[2022-11-12] MEDS ORDERED: LIDOCAINE 2% INJ 20 MG/ML (2 ML VIAL) ONE (12:12)
[2022-11-12] MEDS ORDERED: PROPOFOL 10 MG/ML 20 ML VIAL IV ONE (12:12)
[2022-11-12 12:58] VITALS: RESP 16
[2022-11-12 13:12] VITALS: BP 121/77; PULSE 70
--- NOTE | 2022-11-12 13:48 | P.PCN ---
Date of Procedure: 11/12/22 Description of Procedure: PREOPERATIVE DIAGNOSIS: Change in bowel habits POSTOPERATIVE DIAGNOSIS: Sigmoid volvulus OPERATION: Colonoscopy to the mid transverse colon SURGEON: Arianne Farley MD. ANESTHESIA: MAC. INDICATIONS: The patient is a 52-year-old female who presents for colonoscopy screening. Benefits and risks were described and informed consent was obtained. DESCRIPTION OF PROCEDURE: The patient had undergone Sutab prep. The patient had been brought into the operating room and laid in the left lateral decubitus position. After adequate intravenous sedation, the rectum was examined with 2% lidocaine jelly. No external hemorrhoids were encountered. The rectal tone was within normal limits. No lesions were palpated in the rectal vault. An Olympus colonoscope was advanced with highly redundant sigmoid colon consistent with sigmoid volvulus. Despite multiple attempts, the scope could no longer advance beyond the transverse colon due to length of the colon. No colonic polyps were found. No evidence of focal colitis was found. Retroflexion of the scope demonstrated grade 1 internal hemorrhoids without active bleeding or inflammation. The colon was desufflated. The patient had tolerated the procedure well. Withdrawal time was over 6 minutes. FINDINGS: Aronchick preparation quality scale 1(1-5) Internal hemorrhoids, grade 1 No external prolapsed hemorrhoids. No arteriovenous malformations. No adenomatous polyps. No focal colitis. Sigmoid volvulus RECOMMENDATIONS: Recommend surgical management of sigmoid volvulus Plan - Discharge Summary Discharge Rx Participant: No New Discharge Prescriptions: Continue Levothyroxine Sodium [Synthroid] 175 mcg PO DAILY Cholecalciferol [Vitamin D3 (25 Mcg = 1000 Iu)] 25 mcg PO DAILY Multivit with Calcium,Iron,Min [Women's Multivitamin] 1 each PO DAILY L.acidoph,Paracasei, B.lactis [Probiotic] 1 each PO DAILY Krill/[place]-3/Dha/Epa/Lipids [Krill Oil 350 mg Softgel] 1 each PO DAILY Ascorbic Acid [Vitamin C] 250 mg PO DAILY Discharge Medication List Ascorbic Acid [Vitamin C] 250 mg PO DAILY 07/06/20 [History] Cholecalciferol [Vitamin D3 (25 Mcg = 1000 Iu)] 25 mcg PO DAILY 07/06/20 [History] Krill/[place]-3/Dha/Epa/Lipids [Krill Oil 350 mg Softgel] 1 each PO DAILY 07/06/20 [History] L.acidoph,Paracasei, B.lactis [Probiotic] 1 each PO DAILY 07/06/20 [History] Levothyroxine Sodium [Synthroid] 175 mcg PO DAILY 07/06/20 [History] Multivit with Calcium,Iron,Min [Women's Multivitamin] 1 each PO DAILY 07/06/20 [History] Follow up Appointment(s)/Referral(s): Arianne Farley MD [STAFF PHYSICIAN] - 12/16/22 1:00 pm Patient Instructions/Handouts: Moderate Sedation (ED) Discharge Disposition: HOME SELF-CARE
== END 2022-11-12 14:15 | disposition home or self-care (01) ==
LOC: ORWHC2ENDO 10:54
PROVIDERS: ATTEND Surgery Plastic and Reconstructive Surgery
DX: K56.2 Volvulus (principal); K58.1 Irritable bowel syndrome with constipation; K64.0 First degree hemorrhoids; E03.9 Hypothyroidism, unspecified; Z79.899 Other long term (current) drug therapy; Z87.891 Personal history of nicotine dependence; Z79.890 Hormone replacement therapy
CPT/HCPCS: 45330; 81025; J2250; J2704; J2001; 45378

== ENCOUNTER 2022-11-30 10:10 | Emergency (ER) | payer BC ==
[2022-11-30] MEDS ORDERED: KETOROLAC 15 MG/ML 1 ML VIAL IVP STA (10:59)
--- NOTE | 2022-11-30 11:11 | ED ---
Abdominal Pain HPI - General Chief Complaint: Abdominal Pain Stated Complaint: Abd pain Time Seen by Provider: 11/30/22 10:39 Source: patient, RN notes reviewed Mode of arrival: ambulatory Limitations: no limitations - History of Present Illness Initial Comments: This is a 52-year-old female who presents to the emergency department for abdominal pain. States that this morning she started to develop right upper quadrant pain that continue to persist. The pain does start to radiate down towards the umbilicus as well. She was trying to massage the area was unable to effectively manage it. Denies any nausea, vomiting, or changes in bowel habits. She has had a few episodes of this pain in the past, but states that they typically resolve after 10-15 minutes. They have never persisted this long. Denies any known history of gallbladder problems. She's never had this pain evaluated in the past. Unsure if this is related to any of the food that she eats. Denies any fevers, chills, sore throat, cough, dyspnea, chest pain, palpitati ons, nausea, vomiting, diarrhea, back pain, or headaches. MD Complaint: abdominal pain Location: RUQ - Related Data Home Medications Medication Instructions Recorded Confirmed Ascorbic Acid [Vitamin C] 250 mg PO DAILY 07/06/20 11/11/22 Cholecalciferol [Vitamin D3 (25 25 mcg PO DAILY 07/06/20 11/11/22 Mcg = 1000 Iu)] Krill/[place]-3/Dha/Epa/Lipids 1 each PO DAILY 07/06/20 11/11/22 [Krill Oil 350 mg Softgel] L.acidoph,Paracasei, B.lactis 1 each PO DAILY 07/06/20 11/11/22 [Probiotic] Levothyroxine Sodium [Synthroid] 175 mcg PO DAILY 07/06/20 11/11/22 Multivit with Calcium,Iron,Min 1 each PO DAILY 07/06/20 11/11/22 [Women's Multivitamin] Previous Rx's Medication Instructions Recorded Lactulose 10 gm PO BID 7 Days #473 ml 11/30/22 Allergies Allergy/AdvReac Type Severity Reaction Status Date / Time No Known Allergies Allergy Verified 11/30/22 10:22 Review of Systems ROS Statement: Those systems with pertinent positive or pertinent negative responses have been documented in the HPI. ROS Other: All systems not noted in ROS Statement are negative. Past Medical History Past Medical History: Thyroid Disorder Additional Past Medical History / Comment(s): HX POTS SYNDROME, HYPOTHYROID, PT HAD BOIL OR CYST ON HER BACK DRAINED BY DR SANTANA ON 07/04/20-PT STATES IT IS HEALING-NO DRAINAGE. History of Any Multi-Drug Resistant Organisms: None Reported Past Surgical History: Section Additional Past Surgical History / Comment(s): varicose vein right leg 2021 colonoscopy 2020 Past Anesthesia/Blood Transfusion Reactions: No Reported Reaction, Motion Sickness Additional Past Anesthesia/Blood Transfusion Reaction / Comment(s): No blood transfusion Past Psychological History: Anxiety, Depression Smoking Status: Former smoker - Past Family History Mother Family Medical History: No Reported History Additional Family Medical History / Comment(s): non hodgkins lymphoma General Exam Limitations: no limitations General appearance: alert, in no apparent distress Head exam: Present: atraumatic, normocephalic, normal inspection Respiratory exam: Present: normal lung sounds bilaterally. Absent: respiratory distress, wheezes, rales, rhonchi, stridor Cardiovascular Exam: Present: regular rate, normal rhythm, normal heart sounds. Absent: systolic murmur, diastolic murmur, rubs, gallop, clicks GI/Abdominal exam: Present: soft, tenderness (RUQ), normal bowel sounds. Absent: distended Neurological exam: Present: alert, oriented X3, CN II-XII intact Psychiatric exam: Present: normal affect, normal mood Skin exam: Present: warm, dry, intact, normal color. Absent: rash Course Vital Signs 11/30/22 11/30/22 11/30/22 10:22 12:30 14:04 Temperature 96.9 F L 98.0 F 97.4 F L Pulse Rate 79 64 67 Respiratory 18 20 20 Rate Blood Pressure 137/93 126/58 125/58 O2 Sat by Pulse 100 97 97 Oximetry Medical Decision Making - Medical Decision Making This is a 52-year-old female who presents to the emergency department for abdominal pain. Was pt. sent in by a medical professional or institution? @ -No Did you speak to anyone other than the patient for history? @ -No Did you review nursing and triage notes? @ -Yes, and I agree, it is accurate with regards to the patient's symptoms. Were old charts reviewed? @ -No Differential Diagnosis? @ -Differential Abdominal Pain Women: Appendicitis, Cholecystitis, diverticulosis, ischemic bowel, pancreatitis, hepatitis, UTI, gastroenteritis, AAA, incarcerated hernia, bowel obstruction, constipation, inflammatory bowel, hepatitis, peptic ulcer disease, splenic infarction, perforated viscus, vulvitis, ovarian torsion, PID, kidney stone, placenta abruption, this is not meant to be an all-inclusive list EKG interpreted by me (3pts min.)? @ -EKG interpreted by me demonstrating the following: Sinus rhythm. Ventricular rate 65 beats per minute, RI interval 156 ms, QRS duration 86 ms, QTC 392 ms. X-rays interpreted by me (1pt min.)? @ -Not obtained CT interpreted by me (1pt min.)? @ -Computed tomography scan of the abdomen and pelvis obtained. My interpretation identifies no evidence of bowel wall thickening or free air. U/S interpreted by me (1pt. min.)? @ -Gallbladder ultrasound obtained. My interpretation identifies no evidence of cholelithiasis or gallbladder wall thickening. What testing was considered but not performed? (CT, X-rays, U/S, labs)? Why? @ -None What meds were considered but not given? Why? @ -None Did you discuss the management of the patient with other professionals? @ -Dr. Farley, who advised that the symptoms are related to constipation and recommended treatment with Lactulose. Did you reconcile home meds? @ -No Was smoking cessation discussed for >3mins.? @ -No Was critical care preformed (if so, how long)? @ -No Were there social determinants of health that impacted care today? How? (Homelessness, low income, unemployed, alcoholism, drug addiction, transport ation, low edu. Level, literacy, decrease access to med. care, intermediate, rehab)? @ -No Was there de-escalation of care discussed even if they declined? (Discuss DNR or withdrawal of care, Hospice)? @ -No What co-morbidities impacted this encounter? (DM, HTN, Smoking, COPD, CAD, Cancer, CVA, Hep., AIDS, mental health diagnosis, sleep apnea, morbid obesity)? @ -None Was patient admitted / discharged? @ -Discharged. Lab work obtained and found to be nonactionable. Gallbladder ultrasound obtained initially, revealing no acute findings. She did have significant relief in symptoms following administration of Toradol. Discussed the possibility of obtaining a computed tomography scan for further evaluation of the patient's symptoms. However, given that symptoms have resolved and in light of the normal blood work, it is unlikely that anything significant would b e noted. Patient requested we proceed. Computed tomography scan of the abdomen and pelvis identified a small mesenteric fat containing umbilical hernia. There was slightly increased fat density and radiology advised correlation for incarceration. Case discussed with Dr. Farley, general surgery, who came to evaluate the patient at bedside. She advised that the patient's problems are most likely related to constipation. She gave the patient a dose of lactulose to go home with and advised a prescription be provided. Prescription for lactulose was sent to the patient's pharmacy. I also advised the patient increase fluid intake and follow up with her PCP for reevaluation. Undiagnosed new problem with uncertain prognosis? @ -None Drug Therapy requiring intensive monitoring for toxicity (Heparin, Nitro, Insulin, Cardizem)? @ -None Were any procedures done? @ -None Diagnosis/symptom? @ -Abdominal pain, constipation Acute, or Chronic, or Acute on Chronic? @ -Acute Uncomplicated (without systemic symptoms) or Complicated (systemic symptoms)? @ -Uncomplicated Side effects of treatment? @ -None Exacerbation, Progression, or Severe Exacerbation] @ -Not applicable Poses a threat to life or bodily function? @ -No Return precautions reviewed in depth, the patient is instructed to return to the emergency department with any new, worsening, or concerning symptoms. Patient verbalized understanding. This case was discussed in detail with the attending ED physician, Dr. De La Paz. Presentation, findings, and treatment plan discussed in detail as well. - Lab Data Result diagrams: 11/30/22 11:03 11/30/22 11:03 Lab Results 11/30/22 11/30/22 11/30/22 Range/Units 11:03 11:03 11:03 WBC 4.6 (3.8-10.6) k/uL RBC 4.48 (3.80-5.40) m/uL Hgb 13.8 (11.4-16.0) gm/dL Hct 41.9 (34.0-46.0) % MCV 93.6 (80.0-100.0) fL MCH 30.8 (25.0-35.0) pg MCHC 32.9 (31.0-37.0) g/dL RDW 13.3 (11.5-15.5) % Plt Count 309 (150-450) k/uL MPV 7.7 Neutrophils % 58 % Lymphocytes % 30 % Monocytes % 7 % Eosinophils % 3 % Basophils % 1 % Neutrophils # 2.7 (1.3-7.7) k/uL Lymphocytes # 1.4 (1.0-4.8) k/uL Monocytes # 0.3 (0-1.0) k/uL Eosinophils # 0.1 (0-0.7) k/uL Basophils # 0.0 (0-0.2) k/uL Sodium 137 (137-145) mmol/L Potassium 4.2 (3.5-5.1) mmol/L Chloride 104 (98-107) mmol/L Carbon Dioxide 24 (22-30) mmol/L Anion Gap 9 mmol/L BUN 12 (7-17) mg/dL Creatinine 0.71 (0.52-1.04) mg/dL Est GFR (CKD-EPI)AfAm >90 (>60 ml/min/1.73 sqM) Est GFR (CKD-EPI)NonAf >90 (>60 ml/min/1.73 sqM) Glucose 99 (74-99) mg/dL Plasma Lactic Acid [place]ino 0.6 L (0.7-2.0) mmol/L Calcium 9.4 (8.4-10.2) mg/dL Total Bilirubin 1.1 (0.2-1.3) mg/dL AST 26 (14-36) U/L ALT 16 (4-34) U/L Alkaline Phosphatase 78 (38-126) U/L Troponin I (0.000-0.034) ng/mL Total Protein 7.6 (6.3-8.2) g/dL Albumin 4.7 (3.5-5.0) g/dL Amylase 68 (30-110) U/L Lipase 50 (23-300) U/L Urine Color Urine Appearance (Clear) Urine pH (5.0-8.0) Ur Specific [place] (1.001-1.035) Urine Protein (Negative) Urine Glucose (UA) (Negative) Urine Ketones (Negative) Urine Blood (Negative) Urine Nitrite (Negative) Urine Bilirubin (Negative) Urine Urobilinogen (<2.0) mg/dL Ur Leukocyte Esterase (Negative) Urine RBC (0-5) /hpf Urine WBC (0-5) /hpf 11/30/22 11/30/22 Range/Units 11:03 12:11 WBC (3.8-10.6) k/uL RBC (3.80-5.40) m/uL Hgb (11.4-16.0) gm/dL Hct (34.0-46.0) % MCV (80.0-100.0) fL MCH (25.0-35.0) pg MCHC (31.0-37.0) g/dL RDW (11.5-15.5) % Plt Count (150-450) k/uL MPV Neutrophils % % Lymphocytes % % Monocytes % % Eosinophils % % Basophils % % Neutrophils # (1.3-7.7) k/uL Lymphocytes # (1.0-4.8) k/uL Monocytes # (0-1.0) k/uL Eosinophils # (0-0.7) k/uL Basophils # (0-0.2) k/uL Sodium (137-145) mmol/L Potassium (3.5-5.1) mmol/L Chloride (98-107) mmol/L Carbon Dioxide (22-30) mmol/L Anion Gap mmol/L BUN (7-17) mg/dL Creatinine (0.52-1.04) mg/dL Est GFR (CKD-EPI)AfAm (>60 ml/min/1.73 sqM) Est GFR (CKD-EPI)NonAf (>60 ml/min/1.73 sqM) Glucose (74-99) mg/dL Plasma Lactic Acid [place] (0.7-2.0) mmol/L Calcium (8.4-10.2) mg/dL Total Bilirubin (0.2-1.3) mg/dL AST (14-36) U/L ALT (4-34) U/L Alkaline Phosphatase (38-126) U/L Troponin I <0.012 (0.000-0.034) ng/mL Total Protein (6.3-8.2) g/dL Albumin (3.5-5.0) g/dL Amylase (30-110) U/L Lipase (23-300) U/L Urine Color Colorless Urine Appearance Clear (Clear) Urine pH 6.5 (5.0-8.0) Ur Specific [place] 1.003 (1.001-1.035) Urine Protein Negative (Negative) Urine Glucose (UA) Negative (Negative) Urine Ketones Negative (Negative) Urine Blood Moderate H (Negative) Urine Nitrite Negative (Negative) Urine Bilirubin Negative (Negative) Urine Urobilinogen <2.0 (<2.0) mg/dL Ur Leukocyte Esterase Negative (Negative) Urine RBC 1 (0-5) /hpf Urine WBC <1 (0-5) /hpf - Radiology Data Radiology results: report reviewed, image reviewed Disposition Clinical Impression: Constipation, Abdominal pain Disposition: HOME SELF-CARE Instructions (If sedation given, give patient instructions): Constipation (ED), Abdominal Pain (ED) Additional Instructions: Return to the emergency department with any new, worsening, or concerning symptoms. Take the lactulose twice daily for management of the constipation. Increase your fluid intake. Follow up with your primary care provider in 1-2 days. Prescriptions: Lactulose 10 gm PO BID 7 Days #473 ml Is patient prescribed a controlled substance at d/c from ED?: No Referrals: Romario Santana MD [Primary Care Provider] - 1-2 days
[2022-11-30 11:26] LABS: Basophils % (A) 1 %; Eosinophils # (A) 0.1 k/uL (0-0.7); Eosinophils % (A) 3 %; HCT 41.9 % (34.0-46.0); HGB 13.8 gm/dL (11.4-16.0); Lymphocytes # (A) 1.4 k/uL (1.0-4.8); Lymphocytes % (A) 30 %; MCH 30.8 pg (25.0-35.0); MCHC 32.9 g/dL (31.0-37.0); MCV 93.6 fL (80.0-100.0); Mean Platelet Volume 7.7; Monocytes # (A) 0.3 k/uL (0-1.0); Monocytes % (A) 7 %; Neutrophils # (A) 2.7 k/uL (1.3-7.7); Neutrophils % (A) 58 %; Platelet Count 309 k/uL (150-450); RBC 4.48 m/uL (3.80-5.40); RDW 13.3 % (11.5-15.5); WBC 4.6 k/uL (3.8-10.6)
[2022-11-30 11:31] LABS: ALT 16 U/L (4-34); AST 26 U/L (14-36); African American GFR (CKD) >90 (>60 ml/min/1.73 sqM); Albumin 4.7 g/dL (3.5-5.0); Alkaline Phosphatase 78 U/L (38-126); Amylase 68 U/L (30-110); Anion Gap 9 mmol/L; Blood Urea Nitrogen 12 mg/dL (7-17); Calcium 9.4 mg/dL (8.4-10.2); Carbon Dioxide 24 mmol/L (22-30); Chloride 104 mmol/L (98-107); Glucose 99 mg/dL (74-99); Lipase 50 U/L (23-300); Non-African American GFR(CKD) >90 (>60 ml/min/1.73 sqM); Potassium 4.2 mmol/L (3.5-5.1); Sodium 137 mmol/L (137-145); Total Bilirubin 1.1 mg/dL (0.2-1.3); Total Protein 7.6 g/dL (6.3-8.2)
--- NOTE | 2022-11-30 12:02 | US ---
EXAMINATION TYPE: US gallbladder DATE OF EXAM: 11/30/2022 COMPARISON: NONE CLINICAL INDICATION: Female, 52 years old with history of RUQ pain; Generalized pain. TECHNIQUE: Multiple sonographic images of the right upper quadrant are obtained. FINDINGS: EXAM MEASUREMENTS: Liver Length: 16.4 cm Gallbladder Wall: 0.2 cm CBD: 0.4 cm Right Kidney: 10.0 x 6.2 x 4.0 cm Pancreas: wnl Liver: wnl Gallbladder: wnl Evidence for sonographic Bustos's sign: neg CBD: wnl Right Kidney: No hydronephrosis or masses seen IMPRESSION: 1. Minimal hepatomegaly
[2022-11-30 12:46] LABS: Appearance,Urine Clear (Clear); Bilirubin,Urine Negative (Negative); Blood,Urine Moderate (Negative); Color,Urine Colorless; Glucose,Urine (UA) Negative (Negative); Ketones,Urine Negative (Negative); Leukocyte Esterase,Urine Negative (Negative); Nitrite,Urine Negative (Negative); PH, Urine 6.5 (5.0-8.0); Protein,Urine Negative (Negative); RBC,Urine 1 /hpf (0-5); Specific Gravity,Urine 1.003 (1.001-1.035); Urobilinogen,Urine <2.0 mg/dL (<2.0); WBC,Urine <1 /hpf (0-5)
--- NOTE | 2022-11-30 12:46 | CT ---
EXAMINATION TYPE: CT abdomen pelvis w con DATE OF EXAM: 11/30/2022 COMPARISON: None INDICATION: Mid and left sided abdominal pain DLP: 844.8 mGycm, Automated exposure control for dose reduction was used. CONTRAST: 100 mL of Isovue 300. Study performed without Oral Contrast TECHNIQUE: Axial images were obtained from above the diaphragm to the pubic rami in the axial plane a t 5 mm thick sections. Reconstructed images are reviewed on the computer in the coronal plane. FINDINGS: Limited CT sections are obtained the lung bases. The lung bases are clear. CT ABDOMEN: Liver: A few tiny hepatic cysts may be present. Spleen: Normal Pancreas: Normal Adrenal glands: The adrenal glands are normal. Gallbladder: Normal Kidneys: No masses are evident. No hydronephrosis is present. No cysts are present. Aorta: Normal Inferior vena cava: Normal. CT PELVIS: There is a very small periumbilical hernia with eccentric fat which has an opening of 0.6 cm. Density is slightly increased within the mesenteric fat hernia, consider incarcerated hernia. Loops of bowel within the abdomen and pelvis are normal. This study is without oral contrast limi ting bowel evaluation. Appendix: Not identified. No dilated tubular structure or inflammatory changes. Urinary bladder: Normal. Genitourinary structures: Uterus is normal. Adnexa are unremarkable. Osseous structures: No suspicious lytic or sclerotic lesions. Facet degenerative changes are present L4-5. IMPRESSIONS: 1. Very small mesenteric fat-containing periumbilical hernia. Fat density is slightly increased and incarceration could be considered.
[2022-11-30] MEDS ORDERED: LACTULOSE 20 GM/30 ML CUP PO ONE (13:32)
--- NOTE | 2022-11-30 13:32 | P.GSCN ---
History of Present Illness Consult date: 11/30/22 History of present illness: Patient recently had colonoscopy 2 to 3 weeks ago She reports severe abdominal cramping and pain now improved after massaging abdomen Labs unremarkable CT of the abdomen and pelvis reviewed with moderate stool and redundanct hepatic flexure Report reviewed with small incarcerated umbilical hernia US reviewed unremarkable Clinical exam consistent with constipation over umbilical hernia as she denies any significant umbilical pain Recommend Lactulose 30 mg BID schedule Laxatives scheduled Patient opted to discharge home with outpatient follow-up Past Medical History Past Medical History: Thyroid Disorder Additional Past Medical History / Comment(s): HX POTS SYNDROME, HYPOTHYROID, PT HAD BOIL OR CYST ON HER BACK DRAINED BY DR SANTANA ON 07/04/20-PT STATES IT IS HEALING-NO DRAINAGE. History of Any Multi-Drug Resistant Organisms: None Reported Past Surgical History: Section Additional Past Surgical History / Comment(s): varicose vein right leg 2021 colonoscopy 2020 Past Anesthesia/Blood Transfusion Reactions: No Reported Reaction, Motion Sickness Additional Past Anesthesia/Blood Transfusion Reaction / Comm: No blood transfusion Past Psychological History: Anxiety, Depression Smoking Status: Former smoker - Past Family History Mother Family Medical History: No Reported History Additional Family Medical History / Comment(s): non hodgkins lymphoma Medications and Allergies Home Medications Medication Instructions Recorded Confirmed Type Ascorbic Acid [Vitamin C] 250 mg PO DAILY 07/06/20 11/11/22 History Cholecalciferol [Vitamin D3 (25 25 mcg PO DAILY 07/06/20 11/11/22 History Mcg = 1000 Iu)] Krill/[place]-3/Dha/Epa/Lipids 1 each PO DAILY 07/06/20 11/11/22 History [Krill Oil 350 mg Softgel] L.acidoph,Paracasei, B.lactis 1 each PO DAILY 07/06/20 11/11/22 History [Probiotic] Levothyroxine Sodium [Synthroid] 175 mcg PO DAILY 07/06/20 11/11/22 History Multivit with Calcium,Iron,Min 1 each PO DAILY 07/06/20 11/11/22 History [Women's Multivitamin] Allergies Allergy/AdvReac Type Severity Reaction Status Date / Time No Known Allergies Allergy Verified 11/30/22 10:22 Surgical - Exam Vital Signs Temp Pulse Resp BP Pulse Ox 96.9 F L 79 18 137/93 100 11/30/22 10:22 11/30/22 10:22 11/30/22 10:22 11/30/22 10:22 11/30/22 10:22 Results - Labs 11/30/22 11:03 11/30/22 11:03 Abnormal Lab Results - Last 24 Hours (Table) 11/30/22 11/30/22 Range/Units 11:03 12:11 Plasma Lactic Acid Catalino 0.6 L (0.7-2.0) mmol/L Urine Blood Moderate H (Negative) Diabetes panel 11/30/22 Range/Units 11:03 Sodium 137 (137-145) mmol/L Potassium 4.2 (3.5-5.1) mmol/L Chloride 104 (98-107) mmol/L Carbon Dioxide 24 (22-30) mmol/L BUN 12 (7-17) mg/dL Creatinine 0.71 (0.52-1.04) mg/dL Glucose 99 (74-99) mg/dL Calcium 9.4 (8.4-10.2) mg/dL AST 26 (14-36) U/L ALT 16 (4-34) U/L Alkaline Phosphatase 78 (38-126) U/L Total Protein 7.6 (6.3-8.2) g/dL Albumin 4.7 (3.5-5.0) g/dL Calcium panel 11/30/22 Range/Units 11:03 Calcium 9.4 (8.4-10.2) mg/dL Albumin 4.7 (3.5-5.0) g/dL Pituitary panel 11/30/22 Range/Units 11:03 Sodium 137 (137-145) mmol/L Potassium 4.2 (3.5-5.1) mmol/L Chloride 104 (98-107) mmol/L Carbon Dioxide 24 (22-30) mmol/L BUN 12 (7-17) mg/dL Creatinine 0.71 (0.52-1.04) mg/dL Glucose 99 (74-99) mg/dL Calcium 9.4 (8.4-10.2) mg/dL Adrenal panel 11/30/22 Range/Units 11:03 Sodium 137 (137-145) mmol/L Potassium 4.2 (3.5-5.1) mmol/L Chloride 104 (98-107) mmol/L Carbon Dioxide 24 (22-30) mmol/L BUN 12 (7-17) mg/dL Creatinine 0.71 (0.52-1.04) mg/dL Glucose 99 (74-99) mg/dL Calcium 9.4 (8.4-10.2) mg/dL Total Bilirubin 1.1 (0.2-1.3) mg/dL AST 26 (14-36) U/L ALT 16 (4-34) U/L Alkaline Phosphatase 78 (38-126) U/L Total Protein 7.6 (6.3-8.2) g/dL Albumin 4.7 (3.5-5.0) g/dL
[2022-11-30 14:03] VITALS: RESP 20
[2022-11-30 14:05] VITALS: BP 125/58; PULSE 67; TEMP 97.4
== END 2022-11-30 14:04 | disposition home or self-care (01) ==
LOC: EC 10:10
DX: K59.00 Constipation, unspecified (principal); K42.9 Umbilical hernia without obstruction or gangrene; E03.9 Hypothyroidism, unspecified; Z79.890 Hormone replacement therapy; Z87.891 Personal history of nicotine dependence
CPT/HCPCS: 36415; 93005; 80053; 82150; 83605; 83690; 84484; 85025; 81001; 76705; 74177; 99285; 96374; J1885; Q9967

== ENCOUNTER → 2023-03-12 | Outpatient (CLI) | payer BC ==
--- NOTE | 2023-03-12 10:08 | USB ---
Reason for Exam: Follow-up at short interval from prior study. Patient History: Menarche at age 14. First Full-Term at age 27. Perimenopausal. 2015, Benign Cyst Aspiration on the left side. Maternal cousin had breast cancer, age 40. Maternal aunt had breast cancer, age 71. Risk Values: Genesis 5 year model risk: 1.1%. NCI Lifetime model risk: 8.8%. Technique: Method: Whole Breast Handheld. Prior Study Comparison: 03/05/2021 Bilateral Screening Mammogram, [facility]. 03/18/2021 Right Diagnostic Mammogram, [facility]. 05/29/2022 Bilateral MG 3D diag mammo w/cad GREGORIO, [facility]. Findings: The whole breast of both breasts, the axilla of both breasts and the retroareolar of both breasts were scanned. There are extensive simple appearing cysts present bilaterally. Previous complex areas at the o'clock right breast and 3:00 left breast is not reproduced on the current examination. There are prominent ducts within the subareolar regions bilaterally greater on the right. On the right these may be debris filled. Overall Assessment: Probably benign, BI-RAD 3 Management: Screening Mammogram of both breasts in 6 months. A clinical breast exam by your physician is recommended on an annual basis and results should be correlated with mammographic findings. This exam should not preclude additional follow-up of suspicious palpable abnormalities. Results were given to the patient verbally at the time of exam. Electronically signed and approved by: Alen Chirinos D.O. Radiologis
== END | disposition home or self-care (01) ==
LOC: RADUSWWP 09:06
PROVIDERS: ATTEND Surgery
DX: N60.02 Solitary cyst of left breast (principal); Z80.3 Family history of malignant neoplasm of breast

== ENCOUNTER → 2023-03-13 | Outpatient (CLI) | payer BC ==
--- NOTE | 2023-03-13 14:47 | P.PN ---
Subjective Progress Note Date: 03/13/23 11/07/22 Oliva is a 52-year-old white female who was seen in consultation for Dr. Romario Galvez initially regarding an abnormal mammogram. She had undergone a bilateral mammogram on 2222. This revealed dense breast tissue with innumerable calcifications in both breasts. The patient has had multiple cyst aspirated in both breast in the past. On her most recent visit and attempt to aspirate for cyst was performed with minimal fluid being removed. She did have bilateral breast ultrasound performed on which revealed extensive bilateral simple and complex cysts. The recommendation was for repeat diagnostic ultrasound of both breasts in 6 months. At that time the following cysts were attempted to be aspirated. Aspiration of cysts The right breast was approached initially. 9 o'clock position was prepped using alcohol 22 age needle on a 10 mL syringe was inserted into the palpable abnormality 4 mL of fluid was removed 9:30 position alcohol used to prep the skin 2 mL of fluid removed 10 o'clock position no fluid was removed this appears to be a more solid lesion 12 o'clock position alcohol used to prep the skin 2 mL of fluid removed In the left breast 12 o'clock position the breast was prepped using alcohol and 22-gauge needle and 10 mL syringe 2 mL of fluid removed She has persistent left lateral breast nodularity and on the right side at approximately 12:00 in area of increased nodularity. Last menstrual period started 1 week ago. At this time she does not have any nodules which are bothering her which she wishes to have aspirated. The patient has decreased her caffeine and chocolate intake. 03-13-23 Bilateral ultrasound on 03-12-23 multiple cyst The patient complaining of any new lumps masses or nodules of concern in either breast. recently seen for chronic constipation Caffiene: 1 cup/day nicotine: stopped at 25 used to smoke 1 pk every 2 days chocolate: three times a week BCP: 6 years stopped at 27 Family History; mother: non-hodgkins lymphoma 2020 maternal aunt: breast cancer at 65 cousin maternal: breast cancer at 40 Hormonal History: menarche: 15 breast fed: yes, age at first : 27 periods still regular Surgical History: 1 right varicose vein stripping Medical History: hypothyroid low back pain; L5S1 herniated disc anxiety/depression in the past not now incontinence of urine Social History: nicotine: as above alcohol: weekly drugs: none - Constitutional Constitutional: Denies chills, Denies fever - EENT Eyes: denies blurred vision, denies pain Ears: deny: decreased hearing, tinnitus Ears, nose, mouth and throat: Reports headache, Denies sore throat - Breasts Breasts: bilateral: as per HPI - Cardiovascular Cardiovascular: Denies chest pain, Denies shortness of breath - Respiratory Respiratory: Denies cough - Gastrointestinal Gastrointestinal: Reports constipation, Denies abdominal pain, Denies diarrhea, Denies nausea, Denies vomiting - Genitourinary (Female) Genitourinary: Denies dysuria, Denies hematuria - Menstruation Menstruation: Reports period normal - Musculoskeletal Musculoskeletal: Reports as per HPI - Integumentary Integumentary: Denies pruritus, Denies rash - Neurological Neurological: Denies numbness, Denies weakness - Psychiatric Psychiatric: Denies anxiety, Denies depression - Endocrine Endocrine: Denies fatigue, Denies weight change - Hematologic/Lymphatic Comment: none - Allergic/Immunologic Allergic/Immunologic: Reports as per HPI Past Medical History Past Medical History: Thyroid Disorder Additional Past Medical History / Comment(s): HX POTS SYNDROME, HYPOTHYROID, PT HAD BOIL OR CYST ON HER BACK DRAINED BY DR GALVEZ ON 07/04/20-PT STATES IT IS HEALING-NO DRAINAGE. History of Any Multi-Drug Resistant Organisms: None Reported Past Surgical History: Section Past Anesthesia/Blood Transfusion Reactions: No Reported Reaction, Motion Sickness Past Psychological History: Anxiety, Depression Smoking Status: Former smoker Past Alcohol Use History: Occasional Past Drug Use History: None Reported - Past Family History Mother Family Medical History: No Reported History Medications and Allergies Home Medications Medication Instructions Recorded Confirmed Type Ascorbic Acid [Vitamin C] 250 mg PO DAILY 07/06/20 07/31/22 History Cholecalciferol [Vitamin D3 (25 25 mcg PO DAILY 07/06/20 07/31/22 History Mcg = 1000 Iu)] Krill/[place]-3/Dha/Epa/Lipids 1 each PO DAILY 07/06/20 07/31/22 History [Krill Oil 350 mg Softgel] L.acidoph,Paracasei, B.lactis 1 each PO DAILY 07/06/20 07/31/22 History [Probiotic] Levothyroxine Sodium [Synthroid] 175 mcg PO DAILY 07/06/20 07/31/22 History Multivit with Calcium,Iron,Min 1 each PO DAILY 07/06/20 07/31/22 History [Women's Multivitamin] Zinc With Quercetin 1 tab PO DAILY 07/06/20 07/31/22 History Allergies Allergy/AdvReac Type Severity Reaction Status Date / Time No Known Allergies Allergy Verified 07/31/22 13:27 Objective - Vital Signs Vital signs: Vital Signs Temp 97.8 F 03/13/23 14:34 Pulse 89 03/13/23 14:34 Resp 17 03/13/23 14:34 BP 121/80 03/13/23 14:34 Pulse Ox 98 03/13/23 14:34 FiO2 Intake & Output 03/12/23 03/13/23 03/13/23 18:59 06:59 18:59 Weight 81.647 kg - Constitutional General appearance: Present: cooperative - EENT Eyes: Present: EOMI ENT: Present: hearing grossly normal - Neck Neck: Present: normal ROM - Respiratory Respiratory: bilateral: CTA - Cardiovascular Rhythm: regular Heart sounds: normal: S1, S2 - Integumentary Integumentary: Present: normal turgor - Musculoskeletal Musculoskeletal: Present: gait normal - Psychiatric Psychiatric: Present: A&O x's 3, appropriate affect, intact judgment & insight - Additional findings Additional findings: Breast Exam: BRA: 38C Inspection: Bilateral grade 2/3 ptosis Palpation: Right breast: Multi positional exam fibrocystic changes with dense breast tissue Right axilla: No adenopathy of concern Left breast: Multi-positional exam fibrocystic changes, dense breast tissue Left axilla: No adenopathy of concern Assessment and Plan Assessment: Impression: Fibrocystic breast changes Ultrasound 03-12-23 extensive cysts bilaterally Plan: Bilateral mammogram in 6 months with examination at that time Continue lifestyle modifications Any questions or concerns she will see us sooner. Cc: Dr. Romario Galvez
[2023-03-13 14:54] VITALS: BP 121/80; PULSE 89; RESP 17; TEMP 97.8
== END ==
LOC: WWCWWP 13:48
PROVIDERS: ATTEND Surgery
DX: E03.9 Hypothyroidism, unspecified (principal); N60.12 Diffuse cystic mastopathy of left breast; F41.9 Anxiety disorder, unspecified; F32.A Depression, unspecified; E07.9 Disorder of thyroid, unspecified; N63.15 Unspecified lump in the right breast, overlapping quadrants; N60.01 Solitary cyst of right breast; K59.09 Other constipation; Z79.890 Hormone replacement therapy; Z80.3 Family history of malignant neoplasm of breast; Z87.891 Personal history of nicotine dependence

== ENCOUNTER → 2023-09-28 | Outpatient (CLI) | payer BC ==
--- NOTE | 2023-09-29 16:06 | MM ---
Reason for Exam: Screening (asymptomatic). Last mammogram was performed 1 year(s) and 4 month(s) ago. Patient History: Menarche at age 14. First Full-Term at age 27. Perimenopausal. 2015, Benign Cyst Aspiration on the left side. Maternal cousin had breast cancer, age 40. Maternal aunt had breast cancer, age 71. Risk Values: Genesis 5 year model risk: 1.1%. NCI Lifetime model risk: 8.6%. Prior Study Comparison: 03/05/2021 Bilateral Screening Mammogram, [facility]. 03/18/2021 Right Diagnostic Mammogram, [facility]. 05/29/2022 Bilateral MG 3D diag mammo w/cad GREGORIO, [facility]. Tissue Density: The breasts are extremely dense, which lowers the sensitivity of mammography. Findings: Analyzed By CAD. Diffuse punctate and round calcifications bilaterally. Extensive fluctuating bilateral nodularity. Overall Assessment: Incomplete: need additional imaging evaluation, BI-RAD 0 Management: Diagnostic Breast Ultrasound of both breasts. Whole bilateral breast ultrasounds. [facility] will attempt to contact patient to return for ultrasound. Electronically signed and approved by: Melo Tanner M.D. Radiologist
== END | disposition home or self-care (01) ==
LOC: RADMAMWWP 11:10
PROVIDERS: ATTEND Family Medicine
DX: Z12.31 Encounter for screening mammogram for malignant neoplasm of breast (principal); R92.30 Dense breasts, unspecified; Z80.3 Family history of malignant neoplasm of breast
CPT/HCPCS: 77063; 77067

== ENCOUNTER → 2023-10-01 | Outpatient (CLI) | payer BC ==
--- NOTE | 2023-10-01 10:23 | USB ---
Reason for Exam: Additional evaluation requested from abnormal screening. Patient History: Menarche at age 14. First Full-Term at age 27. Perimenopausal. 2015, Benign Cyst Aspiration on the left side. Maternal cousin had breast cancer, age 40. Maternal aunt had breast cancer, age 71. Risk Values: Genesis 5 year model risk: 1.1%. NCI Lifetime model risk: 8.6%. Technique: Method: Whole Breast Handheld. Doppler: Color. Patient Position: Supine. Prior Study Comparison: 03/18/2021 Right Diagnostic Mammogram, [facility]. 05/29/2022 Bilateral MG 3D diag mammo w/cad [facility], [facility]. 03/12/2023 Bilateral US breast BILAT, [facility]. 09/28/2023 Bilateral MG 3D screening mammo w/cad, [facility]. Findings: The whole breast of both breasts, the axilla of both breasts and the retroareolar of both breasts were scanned. A complete US of all four quadrants of both breasts, axilla, and retro-areolar region were reviewed. Right: * Numerous cysts are present throughout the breast, largest measuring 4.3 cm centrally behind the nipple. * At the 8:00 position, one centrally from the nipple, there is an oval, circumscribed hypoechoic lesion measuring 1.4 cm. On real-time scanning, multiple internal contents suggest cyst with debris. * At the 10:00 position, 1 cm from the nipple, there is a cystic lesion with internal reticulations, suspect complicated cyst. Six-month follow-up to reassess. Left: * At the 2:00 position, 3 cm from the nipple, there is a round, circumscribed hypoechoic area with through transmission measuring 1.2 x 1.1 x 1.1 cm, unchanged from 09/08/2022 favoring either a fibroadenoma or debris-filled cyst. Ongoing follow-up recommended. * At the 3:00 position, 3 cm nipple, an oval 1.3 x 0.6 cm cystic lesion with mural based nodularity, possible component of debris. Six-month follow-up recommended to exclude abnormal soft tissue. * At the 10:00 position, 5 cm from the nipple, there is a round 1.3 x 1.2 cm cystic lesion with prominent mural based nodularity measuring up to 0.9 cm, again, probably clumped debris with six-month follow-up recommended to exclude abnormal soft tissue. * Duct ectasia behind the nipple. * No axillary lymphadenopathy. Overall Assessment: Probably benign, BI-RAD 3 Management: Diagnostic Breast Ultrasound of both breasts in 6 months. In particular for one area on the right and 3 areas of the left. A clinical breast exam by your physician is recommended on an annual basis and results should be correlated with mammographic findings. This exam should not preclude additional follow-up of suspicious palpable abnormalities. Results were given to the patient verbally at the time of exam. Electronically signed and approved by: Melo Tanner M.D. Radiologist
== END | disposition home or self-care (01) ==
LOC: RADUSWWP 09:31
PROVIDERS: ATTEND Family Medicine
DX: R92.8 Other abnormal and inconclusive findings on diagnostic imaging of breast (principal); R92.30 Dense breasts, unspecified; Z80.3 Family history of malignant neoplasm of breast

== ENCOUNTER → 2024-05-12 | Outpatient (CLI) | payer BC ==
--- NOTE | 2024-05-12 09:06 | USB ---
Reason for Exam: Follow-up at short interval from prior study. Patient History: Menarche at age 14. First Full-Term at age 27. Perimenopausal. 2015, Benign Cyst Aspiration on the left side. Maternal cousin had breast cancer, age 40. Maternal aunt had breast cancer, age 71. Risk Values: Genesis 5 year model risk: 1.2%. NCI Lifetime model risk: 8.5%. Technique: Method: Targeted. Prior Study Comparison: 03/18/2021 Right Diagnostic Mammogram, [facility]. 05/29/2022 Bilateral MG 3D diag mammo w/cad GREGORIO, [facility]. 09/28/2023 Bilateral MG 3D screening mammo w/cad, [facility]. Findings: The upper section of the breast of both breasts, the axilla of both breasts and the retroareolar of both breasts were scanned. Targeted bilateral breast ultrasound. At 10:00 position 1 cm distance from nipple there is a persistent circumscribed 1.6 x 1.4 x 1.7 cm lesion with internal echoes having increased through transmission likely reflecting debris filled cyst not significantly changed in size or appearance from prior. Right axillary region shows no suspicious abnormalities. Left breast at 2:00 position shows several thin-walled cysts. No worrisome lesion on today's study. At 3:00 position there is persistent oval circumscribed lesion measuring 9 x 6 x 9 mm with increased through transmission not completely anechoic but avascular stable from prior study favoring debris filled cyst. At 10:00 position persistent round avascular hypoechoic lesion measuring 1.2 x 0.9 x 1.1 cm stable from prior study favoring debris filled cyst. No new suspicious lesions identified in either breast on today's study. Left axillary region is unremarkable. Overall Assessment: Benign, BI-RAD 2 Management: Screening Mammogram of both breasts in 5 months. Back on schedule. A clinical breast exam by your physician is recommended on an annual basis and results should be correlated with mammographic findings. This exam should not preclude additional follow-up of suspicious palpable abnormalities. Results were given to the patient verbally at the time of exam. [facility], , 05/12/2024 9:03 AM. Electronically signed and approved by: Budyd Delcid M.D.
== END | disposition home or self-care (01) ==
LOC: RADUSWWP 08:33
PROVIDERS: ATTEND Family Medicine
DX: R92.0 Mammographic microcalcification found on diagnostic imaging of breast (principal); Z80.3 Family history of malignant neoplasm of breast

== ENCOUNTER → 2024-10-07 | Outpatient (CLI) | payer BC ==
--- NOTE | 2024-10-10 09:06 | MM ---
Reason for Exam: Screening (asymptomatic). Last screening mammogram was performed 12 month(s) ago. Patient History: Menarche at age 14. First Full-Term at age 27. Perimenopausal. 2015, Benign Cyst Aspiration on the left side. Maternal cousin had breast cancer, age 40. Maternal aunt had breast cancer, age 71. Risk Values: Genesis 5 year model risk: 1.2%. NCI Lifetime model risk: 8.5%. Prior Study Comparison: 03/18/2021 Right Diagnostic Mammogram, [facility]. 05/29/2022 Bilateral MG 3D diag mammo w/cad [facility], [facility]. 09/28/2023 Bilateral MG 3D screening mammo w/cad, [facility]. Tissue Density: The breasts are extremely dense, which lowers the sensitivity of mammography. Findings: Analyzed By CAD. Diffuse bilateral punctate calcifications redemonstrated. There is no suspicious group of microcalcifications or new suspicious mass in either breast. Overall Assessment: Benign, BI-RAD 2 Management: Screening Mammogram of both breasts in 1 year. Given the patient's extremely dense breast tissue, consideration can been given to supplementary screening with breast ultrasound. Patient should continue monthly self-breast exams. A clinical breast exam by your physician is recommended on an annual basis. This exam should not preclude additional follow-up of suspicious palpable abnormalities. Note on Genesis scores and lifetime risk: 1. A Genesis score greater than 3% is considered moderate risk. If this is the case, consider specialist referral to assess eligibility for a risk reducing agent. 2. If overall lifetime risk for the development of breast cancer is 20% or higher, the patient may qualify for future screening with alternating mammogram and breast MRI. [facility], , 10/10/2024 9:04 AM. Electronically signed and approved by: Melo Tanner M.D. Radiologist
== END | disposition home or self-care (01) ==
LOC: RADMAMWWP 15:58
PROVIDERS: ATTEND Family Medicine
DX: Z12.31 Encounter for screening mammogram for malignant neoplasm of breast (principal); R92.343 Mammographic extreme density, bilateral breasts; R92.1 Mammographic calcification found on diagnostic imaging of breast; Z80.3 Family history of malignant neoplasm of breast
CPT/HCPCS: 77063; 77067